=== PATIENT | female | born 1970 | race Caucasian/White ===

== ENCOUNTER 2019-03-30 10:52 | Inpatient (IN) | payer OTHER, SELFPAY ==
[2019-03-30] MEDS ORDERED: Bisacodyl 10 MG SUPP PR PRN (12:30)
[2019-03-30] MEDS ORDERED: Guaifenesin DM 100-10/5 ML UDCUP PO PRN (12:30)
[2019-03-30] MEDS ORDERED: Promethazine HCl 25 MG/ML VIAL ONE (12:47)
[2019-03-30] MEDS ORDERED: Dexamethasone 4 mg/ml Vial SLOW IVP SCH (13:00)
--- NOTE | 2019-03-30 13:10 | HP ---
REASON FOR ADMISSION: Brain mass with vasogenic edema, left hemiparesis. HISTORY OF PRESENTING ILLNESS: The patient complains of intractable nausea and vomiting from last 2 weeks. She could not keep anything down. She went to see her primary care physician, Ms. Doris Groves and was given Zofran, which did not really help her. Then she tried to eat only dry foods, which then really helped, but as she was still throwing up. She also developed pressure-like headache which was throbbing all over. She in fact passed out in a store while she was shopping 2 weeks back. She has been feeling fuzzy which is especially worse with neck extension per patient. She has also lost weight. She is a right-handed person. Ms. Hickman states that she cannot focus well and has a wobbly gait now. PAST MEDICAL AND SURGICAL HISTORY: History of bleeding per rectum and in the urine a year back, and has had colonoscopy done, which showed 2 polyps with no malignancy as such. Both symptoms got resolved per patient. Cholecystectomy, tonsillectomy. Pap smear was more than 5 years ago as far as she knows was normal. Tobacco abuse. CURRENT MEDICATIONS: None. ALLERGIES: NO KNOWN DRUG ALLERGIES. PERSONAL HISTORY: Smokes half to one pack a day and has been doing so for the last 20 years. Does not abuse alcohol. Has used marijuana of late to control her nausea. The patient states she is single, has 3 children. FAMILY HISTORY: Mom in her 80s. She has had history of breast cancer. She also had history of polio. Father in his 70s from [place] and coronary artery disease. Power of deputy attorney general is her son, Mr. Nas Raza. Number to reach him is [phone]. She has 3 children. Has a daughter, who lives in [place] and another son was incarcerated at present. 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 REVIEW OF SYSTEMS: CONSTITUTIONAL: Negative for weight loss or gain, ability to conduct usual activities. SKIN: Negative for rash, itching. EYES: Negative for double vision, pain. ENT/MOUTH: Negative for nose bleeding, neck stiffness, pain, tenderness. CARDIOVASCULAR: Negative for palpitations, dyspnea on exertion, orthopnea. RESPIRATORY: Negative for shortness of breath, wheezing, cough, hemoptysis, fever or night sweats. GASTROINTESTINAL: Negative for poor appetite, abdominal pain, heartburn, nausea , vomiting, constipation, or diarrhea. GENITOURINARY: Negative for urgency, frequency, dysuria, nocturia. MUSCULOSKELETAL: Negative for pain, swelling. NEUROLOGIC/PSYCHIATRIC: Negative for anxiety, depression. ALLERGY/IMMUNOLOGIC: Negative for skin rash, bleeding tendency. PHYSICAL EXAMINATION: GENERAL: The patient is a 48-year-old female, who is currently not in any acute distress. VITAL SIGNS: Blood pressure 126/76, pulse 104 per minute, respiratory rate 16 per minute, temperature 98.4 degrees Fahrenheit, saturating 97% on room air. NECK: Supple. No elevated JVD. HEENT: Eyes, extraocular muscles intact. Pupils reacting to light. Oral cavity, mucous membranes are moist. No exudates or congestion. CARDIOVASCULAR: S1, S2 heard, regular rhythm. RESPIRATORY: Air entry 1+ bilateral. No rales or rhonchi. ABDOMEN: Soft, bowel sounds heard. No tenderness, rigidity, or guarding. EXTREMITIES: No peripheral edema or calf tenderness. VASCULAR: Peripheral pulses 1+ bilateral. No ischemic ulcerations or gangrene. CENTRAL NERVOUS SYSTEM: Cranial nerves are grossly intact. Motor system, strength is 3/5 in left upper and lower extremity, 5/5 in right upper and lower extremities. Babinski is downgoing both. Gait was not tested. Reflexes are 2+ bilateral and is fairly brisk on the left side. PSYCHIATRIC: Patient is a bit anxious, otherwise no hallucinations or delusions. LABORATORY DATA: CT brain without contrast done shows right cerebral masses with associated vasogenic edema and shift of midline. There is a 7 mm [id number] shift. Extensive vasogenic edema is seen throughout the right cerebral hemisphere, predominantly in the frontal and parietal region. There is a masslike area of density alteration within the right frontal and parietal white matter, rounded in nature with dense periphery and hypodense central characteristics. These may reflect metastatic disease or abscesses. White count of 9, H and H 14 and 47, platelet count 420, MCV is 99 with 64% neutrophils. Bicarb is 22, BUN 5, creatinine 0.7, serum glucose 90. CLINICAL IMPRESSION AND PLAN: The patient will be admitted to ICU for right brain mass and left hemiparesis. She has severe vasogenic edema. She will be on Decadron 4 mg IV q.6 hourly, Protonix 40 mg IV daily. We will obtain MRI brain with and without contrast and CT of the chest, abdomen, and pelvis to see if there is any primary. The patient is not septic at present. She has normal white count. This is unlikely to be an abscess. Nevertheless, we will obtain blood cultures. Dr. Goodman, neurosurgeon, has been consulted from ER. We will obtain PT/OT evaluations. The patient has no insurance and likely will need case management consultation as well for help with discharge planning. I have spoken to the patient's son, Mr. Nas Raza, who is currently in [place], training to become a [employer] warrior. He will likely fly down to help his mom. Job ID: [id number] [facility]
[2019-03-30 13:57] LABS: ALT (SGPT) 15 U/L (8-55); AST (SGOT) 14 U/L (5-34); Albumin 4.2 g/dL (3.5-5.0); Alkaline Phosphatase 63 U/L (40-110); Bilirubin, Direct 0.2 mg/dL (0.1-0.3); Bilirubin, Total 0.5 mg/dL (0.2-1.2); Protein, Total 6.7 g/dL (6.0-8.3)
--- NOTE | 2019-03-30 14:21 | CT ---
Chest, abdomen, and pelvic CT scan with IV contrast: HISTORY: History of brain mass with concern for metastasis. FINDINGS: There is a large, approximately 3.8 cm diameter poorly circumscribed thick walled cavitary mass in th e right upper lobe certainly worrisome for neoplasm. There are abnormally enlarged lymph nodes in the mediastinum including a 1.4 cm prevascular node, a 2.0 cm right paratracheal node, and a 1.8 cm d iameter subcarinal node evidence for extensive mediastinal adenopathy. There are probably some associated enlarged hilar nodes as well. No significant pleural effusion. Multiple small pulmonary pa renchymal nodular densities are noted bilaterally concerning for bilateral metastasis. No significant pleural effusion or pericardial effusion. No liver metastasis. Status post cholecystectomy with mild dilatation of the common duct. Visualized pancreas, spleen, and adrenal glands are unremarkable. There is some minimal dilatation of the right upper renal collecting system and left upper ureter but without evidence for an obstructing mike culus. Small right renal cysts. Normal-appearing appendix. Unremarkable appearing urinary bladder. Visualized uterus and adnexa are unremarkable. No significant abnormal intraperitoneal fluid collecti on. No evidence for intra-abdominal or retroperitoneal or pelvic adenopathy. IMPRESSION: Large poorly circumscribed cavitary right upper lobe lung mass suspicious for neoplasm. Extensive mediastinal adenopathy. Bilateral pulmonary metastasis. Dilatation of the right upper collecting system and right upper urete r without an overt obstructing calculus. Other findings as above.
[2019-03-30] MEDS ORDERED: Iopamidol-370 76% 500 ML 1 ML ONE (16:42)
--- NOTE | 2019-03-30 17:21 | CON ---
DATE OF CONSULTATION: HISTORY OF PRESENT ILLNESS: Ms. Hickman is a 48-year-old female, who was transferred from [place] to our emergency department. Apparently, she had a CT head showing right-sided mass with vasogenic edema. Ms. Hickman states that she has had 2 to 3 weeks of severe headaches, nausea, and vomiting. Primary care has tried some Zofran and Imitrex without any significant benefit. She has been unable to keep much down. She is currently coughing with frequently getting a white yellowish sputum up. She states that she has had some left-sided weakness, feels very fatigued in general. She is a smoker approximately half a pack a day, and has recently tried switching over to vaping. When I see her, she is resting, but has significant cough. She is afebrile. She is alert and oriented x3. She is slightly slow with responses, but is able to give correct appropriate response. She is moving all 4 extremities well. She has slight decrease in carding utility tender strength on the left, decreased hip flexion on the left with some decrease in sensation on the left lower leg and V1 and V2 distribution on the left side of her face. She has some blurriness to the left and her vision things are much more clear to the right, but pupils are equal, round, and reactive to light. Her extraocular movements are intact. Her hearing is intact. Moist mucous membranes. No cranial nerve deficit. REVIEW OF SYSTEMS: A 10-point review of systems is completed, is negative other than stated in the above HPI. ALLERGIES: NO KNOWN DRUG ALLERGIES. MEDICATIONS: None. PAST MEDICAL HISTORY: None. SOCIAL HISTORY: The patient denies alcohol use or illicit drug use. Uses tobacco, cigarettes approximately half a pack per day and she is trying to add vaping to quit smoking. PHYSICAL EXAMINATION: VITAL SIGNS: Temperature 98.4, blood pressure 116/86, respirations 16, heart rate 87, and O2 saturation 97% on room air. CONSTITUTIONAL: The patient is awake, alert, oriented x3. She is normal. Temperature, afebrile. Does appear to be in some distress with coughing and headache. HEENT. Head is normocephalic and atraumatic. Pupils are equal, round, and reactive to light. Extraocular movements are intact. Hearing is intact. Moist mucous membranes. RESPIRATIONS: Significant cough with symmetric chest rise. She has some whitish thick production. EXTREMITIES: 5/5 strength in bilateral deltoids, biceps, triceps, wrist extension, finger extension. Decreased left carding utility tender strength in intrinsic lower extremities 5/5, bilateral knee flexion, extension, dorsiflexion, plantar flexion. Decreased hip flexion on the left and decreased sensation on left lower leg. NEUROLOGIC: The patient is awake, alert, and oriented x3. GCS of 15. Cranial nerves 2 through 12 are tested and intact except for some decreased sensation in V1 and V2 on the left. She has some lateralizing weakness on the left side and some change in sensation in the left lower leg. She also describes more blurriness if she looks to the left compared to the right in her vision. Memory, attention, fund of knowledge are intact. IMAGING STUDIES: CT of the brain was done at [facility], indicates right cerebral masses with associated vasogenic edema and midline shift structures may be metastatic or abscess in nature. ASSESSMENT AND PLAN: Ms. Hickman is a 48-year-old female with a 2-week history of severe headache, nausea, and vomiting. She has new diagnosis via imaging of brain mass. Recommend hospitalist admission to workup new mass. We are recommending MRI of brain with and without contrast, [facility] protocol along with CT chest, abdomen and pelvis. Oncology consult. Dependent on imaging, could possibly take the patient to surgery tomorrow as early as tomorrow morning for tumor resection. She had attended [facility] in [place], continue 4 mg q.6 hours and regular neuro checks. If there are any further questions, please contact Neurosurgery. Job ID: [id number]
--- NOTE | 2019-03-30 17:31 | MRI ---
EXAM: MRI Brain W WO Con PROVIDED CLINICAL HISTORY: Brain masses COMPARISON: CT examination same date FINDINGS: There is extensive vasogenic edema throughout the right frontal and parietal regions redemonstrated. There are rim-enhancing masses within the right frontal and right parietal white matter measuring about 2.6 cm and 3.6 cm respectively. These demonstrate intermediate signal intensity on T1 and T2-we ighted images peripherally with areas of increased signal intensity centrally on fluid sensitive sequences. There is thick peripheral rim enhancement. There is some restricted diffusion seen involvi ng the circumference of these masses. Mass effect with eisph-tr-nthy shift of the midline structures by about 12 mm is noted, with the degr ee of shift increased with respect to the prior CT examination. There is no evidence for intracranial hemorrhage. There is mild uncal herniation. Appropriate flow voids are seen within the major intracranial vessels. No additional abnormal enhance ment is identified. The calvarial marrow signal demonstrates no focal abnormality. IMPRESSION: Rim-enhancing right cerebral masses with extensive vasogenic edema and increasing shift of the midlin e structures. Differential considerations would include metastatic disease and brain abscesses, though the lack of central restricted diffusion favors the former.
[2019-03-30] MEDS: Ondansetron PF 4 MG/2 ML Vial IVP PRN (17:34)
[2019-03-30] MEDS: Dexamethasone 4 mg/ml Vial SLOW IVP SCH (17:34)
[2019-03-30] MEDS: Acetaminophen 325 MG TAB PO PRN (17:34)
[2019-03-30] MEDS: Nicotine 14 MG PATCH TD SCH (17:35)
[2019-03-30] MEDS ORDERED: Ketorolac Tromethamine 30 MG/ML VIAL IVP SCH (18:00)
--- NOTE | 2019-03-30 18:04 | CON ---
DATE OF CONSULTATION: 03/30/2019 SERVICE: Pulmonary Medicine. REASON FOR CONSULTATION: ICU patient, lung mass. HISTORY OF PRESENT ILLNESS: The patient is a 48-year-old white female with past medical history significant for tobacco abuse and COPD. She was in her usual state of health until 1 to 2 months ago when she started having increasing headaches. She was seen multiple times and diagnosed with migraine. None of the medications seem to work. It progressed to the point where started having frequent vomiting. She presented to the emergency department, where a chest x-ray was performed demonstrating a mass. She had a CT of the chest, abdomen, pelvis, and CT of the head demonstrating extensive intracranial metastases, and right lung cavitary lesions as well as widespread mediastinal lymphadenopathy. She was subsequently admitted to the ICU for close neurologic observation because of her symptoms of increased intracranial pressure. She is actually feeling a little bit better at this point. She denies any current fevers or chills. She is not coughing up any sputum. PHYSICAL EXAMINATION: VITAL SIGNS: Afebrile. Pulse 98, blood pressure 108/74, respirations 16, saturation 96% on 2 L nasal cannula on room air. GENERAL: The patient is awake and alert, in no apparent distress. HEENT: Normocephalic, atraumatic. Sclerae are white. Conjunctivae are pink. Oral mucosa is moist without lesions. There is no cervical lymphadenopathy present. HEART: Normal rate. Regular. LUNGS: Good air entry. There is a slightly prolonged expiratory phase, but I do not appreciate any wheezing or crackles. ABDOMEN: Soft, nontender, and nondistended. Bowel sounds are positive. MUSCULOSKELETAL: No cyanosis or clubbing. There is no pitting in the bilateral lower extremities. NEUROLOGIC: Grossly nonfocal. LABORATORY DATA: WBC 9.4, hemoglobin 14.9, platelets 420,000. Differential is normal. Basic metabolic profile and liver function studies are unremarkable. IMAGING DATA: 1. CT of the chest, abdomen, and pelvis demonstrates a right cavitary lesion, multiple bilateral pulmonary nodules/masses are present. Widespread mediastinal lymphadenopathy is present, but I do not appreciate any cervical lymph nodes on the CT of the chest. 2. CT of the brain demonstrates extensive intracranial metastases. There is significant midline shift, and vasogenic edema present. ASSESSMENT: 1. Cavitary lung mass. 2. Mediastinal lymphadenopathy. 3. Brain metastases. 4. Chronic obstructive pulmonary disease/emphysema identified on CT of chest. DISCUSSION AND PLAN: The only place will have to go to get a sample is either the lung, or the brain. I will discuss with Neurosurgery which is the safest option. If they are planning to intervene on the intracranial hypertension, we will await their pathology. If not, a bronchoscopy could be done and would be technically easy, but pose a significant risk of intraoperative herniation. As such, we would have to do it under general anesthesia, and paralyze her to prevent any coughing fits. I believe a transcutaneous biopsy could create a very significant bronchopleural fistula, which would be challenging to correct. Because of the amount of emphysema that she has, she almost certainly would develop a pneumothorax. I will discuss these options with neurosurgery, and come up with a plan of action that best serves this patient. In the meantime, she is going to be on stress dose of steroids. I will schedule nebulized medications. Pulmonary/Critical Care will follow very closely. 70 minutes have been devoted to this patient in various activities. I personally reviewed all imaging studies and laboratory data noted within this document. For fifty percent of this time, I was interacting with the patient at the bedside or coordinating care with the care team. For the remainder of the time I was immediately available to the patient in the hospital unit. Job ID: [id number] [facility]
[2019-03-30] MEDS ORDERED: ALPRAZolam 0.5 MG TAB PO SCH (22:45)
[2019-03-31] MEDS: Dexamethasone 4 mg/ml Vial SLOW IVP SCH ×4 (00:09→18:55)
[2019-03-31 04:46] LABS: #Monocytes 0.2 thou/uL (0.11-0.59); #Neutrophils 7.4 thou/uL (1.40-6.50); %Lymphocytes 11.2 % (21.0-51.0); %Monocytes 2.5 % (0.0-10.0); %Neutrophils 86.3 % (42.0-75.0); Hemoglobin 12.4 g/dL (12.0-16.0); Mean Corpuscular HGB CONC 33.1 g/dL (32.0-36.0); Mean Corpuscular Hemoglobin 32.6 pg (27.0-31.0); Mean Corpuscular Volume 98.6 fL (78.0-98.0); Mean Platelet Volume 6.4 fL (7.4-10.4); Platelet Count 361 thou/uL (130-400); RBC Distribution Width 11.4 % (11.5-14.5); White Blood Cell (WBC) Count 8.6 thou/uL (4.8-10.8)
[2019-03-31 05:05] LABS: Anion Gap 13 mmol/L (10-20); BUN (Urea Nitrogen) 9 mg/dL (7.0-18.7); Calc. Creatinine Clearance 0 mL/min (70-130); Carbon Dioxide 22 mmol/L (22-29); Chloride 106 mmol/L (98-107); Estimated GFR-MDRD 89; Glucose 135 mg/dL (70-105); Potassium 3.5 mmol/L (3.5-5.1); Sodium 137 mmol/L (136-145)
[2019-03-31] MEDS: ALPRAZolam 0.5 MG TAB PO PRN (07:16)
[2019-03-31] MEDS: Pantoprazole 40 MG VIAL IVP SCH (07:16)
[2019-03-31] MEDS: Ondansetron PF 4 MG/2 ML Vial IVP PRN (07:16)
[2019-03-31] MEDS ORDERED: CEFAZOLIN 2 GM in Premix Bag 1 BAG IVPB SCH (08:00)
--- NOTE | 2019-03-31 08:31 | PRG ---
DATE OF SERVICE: 03/31/2019 I personally interviewed and examined the patient, and agree with documentation of Ave Givens PA-C, dated 03/30/2019. Briefly, Lupe Hickman is a 48-year-old woman admitted to our emergency department yesterday with a change in mental status over the last [address] image of the brain revealed at least 2 areas of mass with surrounding vasogenic edema and a significant amount of right to left shift. MR imaging was obtained and I spoke to her both last night and this morning about treatment. Ms. Hickman has had no fevers and her vitals have been stable since her admission. On examination, Ms. Hickman has some tangential speech, but she has no severe receptive or expressive dysphagia. She has some short-term memory issues, but she has a cognitive ability to follow a conversation and she is appropriately worried about her medical condition. I do not find any cranial neuropathy on her examination. There is a slight left-sided drift and slight left-sided neglect. There is left inferior quadrantanopsia. MR imaging shows two enhancing lesions, one in the frontal lobe, one in the parietal lobe, both on the right side. There is surrounding vasogenic edema around both of these. There is significant midline shift because of the edema and the mass effect. These look metastatic. CT of the chest, abdomen, pelvis shows a lesion in the right lung as well as hilar adenopathy. I spoke to Ms. Hickman and then I spoke with Ramon Raza, her son, on the phone. I told both of them that this is likely a lung cancer that has metastasized to the brain. Other possibilities include a different malignancy that has metastasized both to the lung and the brain. It is very unlikely this is abscess. I have recommended stereotactic resection of both lesions, a 2-week recovery, and then beginning adjuvant therapy thereafter. Informed Consent: I discussed indications, risks, benefits, alternatives and expected outcomes from surgery. The risks we discussed included, but were not limited to, bleeding, infection, brain damage, seizure, stroke, paralysis, dependence for care, vegetative state, cardiopulmonary complications of anesthesia and . They understand the risks and want to proceed. We will get her to the operating room today. Job ID: [id number]
[2019-03-31] MEDS ORDERED: FLU VACC QS2019-20(6MOS UP)/PF 60 MCG/0.5 ML SYRINGE IM ONE (09:00)
[2019-03-31] MEDS ORDERED: Dexamethasone 20 MG/5 ML VIAL ONE (11:30)
[2019-03-31] MEDS ORDERED: Rocuronium Bromide 10 MG/ML (10ML VIAL) ONE (11:30)
[2019-03-31] MEDS ORDERED: Ondansetron PF 4 MG/2 ML Vial ONE (11:30)
[2019-03-31] MEDS ORDERED: Lidocaine 1% PF 5 ML VIAL ONE (11:30)
[2019-03-31] MEDS ORDERED: PROPOFOL 200 MG/20 ML VIAL ONE (11:30)
[2019-03-31] MEDS ORDERED: Glycopyrrolate 0.2 MG/ML 5 ML SYRINGE ONE (11:30)
--- NOTE | 2019-03-31 12:09 | PDOC.HOSPP ---
- Subjective Encounter Date: 03/31/19 Encounter Time: 10:30 Subjective: awake, no coughing spells no nausea/vomiting or headache this am is able to move her left extremities but its still the same as before "leg doesn 't want to listen to me" - Objective Vital Signs & Weight: Vital Signs (12 hours) Temp Pulse Resp Pulse Ox 03/31/19 08:00 98 03/31/19 07:33 85 16 99 03/31/19 04:00 98.0 F Weight Weight 1.541 oz Most Recent Monitor Data Heart Rate from ECG 86 NIBP 116/75 NIBP BP-Mean 88 Respiration from ECG 20 SpO2 98 I&O: 03/30/19 03/31/19 04/01/19 06:59 06:59 06:59 Intake Total 252 0 Output Total 700 0 Balance -448 0 Result Diagrams: 03/31/19 04:28 03/31/19 04:28 Hospitalist ROS - Medication Medications: Active Medications Generic Name Dose Route Start Last Admin Trade Name Freq PRN Reason Stop Dose Admin Acetaminophen 650 mg 03/30/19 12:30 03/30/19 17:34 Tylenol PO 650 mg Q4H PRN Administration Headache/Fever/Mild Pain (1-3) Albuterol/Ipratropium 3 ml 03/30/19 19:00 03/31/19 07:33 Duoneb NEB 3 ml [id number] AVEL Administration Alprazolam 0.5 mg 03/30/19 22:43 03/31/19 07:16 Xanax PO 0.5 mg BID PRN Administration Anxiety Dexamethasone 4 mg 03/30/19 18:00 03/31/19 11:51 Decadron SLOW IVP 4 mg Q6HR AVEL Administration Nicotine 14 mg 03/30/19 18:00 03/30/19 17:35 Nicoderm Patch TD Not Given Q24HR AVEL Ondansetron HCl 4 mg 03/30/19 12:30 03/31/19 07:16 Zofran IVP 4 mg Q6H PRN Administration Nausea/Vomiting Pantoprazole Sodium 40 mg 03/31/19 09:00 03/31/19 07:16 Protonix IVP 40 mg DAILY AVEL Administration - Exam General Appearance: NAD, awake alert Eye: PERRL, anicteric sclera ENT: no oropharyngeal lesions, moist mucosa Neck: supple, no JVD Heart: RRR, no murmur Respiratory: no wheezes, no rales, rhonchi Gastrointestinal: soft, non-tender, non-distended, normal bowel sounds Extremities: no cyanosis, no edema Neurological - other findings: left hemiparesis Hosp A/P (1) Brain mass Code(s): G93.89 - OTHER SPECIFIED DISORDERS OF BRAIN Status: Acute (2) Lung mass Code(s): R91.8 - OTHER NONSPECIFIC ABNORMAL FINDING OF LUNG FIELD Status: Acute (3) Tobacco abuse Code(s): Z72.0 - TOBACCO USE Status: Chronic (4) Left hemiparesis Code(s): G81.94 - HEMIPLEGIA, UNSPECIFIED AFFECTING LEFT NONDOMINANT SIDE Status: Acute - Plan has right cerebral mass x2 likely mets, right lung cavitary lesion in upper lobe with mediastinal adenopathy chronic tobacco abuse on decadron, protonix, nebs is going to OR this afternoon hemostable quantiferon has been ordered.
[2019-03-31] MEDS ORDERED: Lidocaine 0.5%/Epinephrine 1:200,000 50 ml Vial ONE (13:52)
[2019-03-31] MEDS ORDERED: Sodium Chloride 0.9% 20 ML ONE (13:53)
[2019-03-31] MEDS ORDERED: Thrombin 5000 UNITS/5 ML VIAL ONE (13:53)
[2019-03-31] MEDS ORDERED: Bacitracin Zinc Ointment 30 gm TUBE ONE (13:53)
[2019-03-31] MEDS ORDERED: Fentanyl 100 MCG/2 ML VIAL ONE (14:37)
--- NOTE | 2019-03-31 16:08 | PRG ---
DATE OF SERVICE: 03/31/2019 SERVICE: Pulmonary Medicine. INTERVAL HISTORY: The patient is doing fine from respiratory standpoint. She continues to have some headaches, but they are better. Less nausea. She did not eat much of the meal last night. She has been n.p.o. this morning for surgical procedure. PHYSICAL EXAMINATION: VITAL SIGNS: Afebrile, pulse 102, blood pressure 116/76, respirations 22, and saturation 95% currently on room air. GENERAL: The patient is awake and alert, in no apparent distress. LUNGS: Decent air entry. There is a prolonged expiratory phase, but no wheezing. HEART: Normal rate and regular. ABDOMEN: Soft, nontender, and nondistended. Bowel sounds are positive. MUSCULOSKELETAL: No cyanosis or clubbing. No pitting edema. LABORATORY DATA: WBC is 8.6, hemoglobin 12.4, platelets 361,000. Basic metabolic profile and liver function studies are otherwise unremarkable. Blood cultures x2 are negative. ASSESSMENT: 1. Cavitary lung mass. 2. Mediastinal lymphadenopathy. 3. Brain metastases, multiple. 4. Chronic obstructive pulmonary disease/emphysema identified on CT scan without acute exacerbation. DISCUSSION AND PLAN: The patient is currently optimized from a respiratory standpoint to proceed with a surgical intervention. She is going to undergo a craniotomy x2 today with possible excision of both metastases. We will await the pathology. Pulmonary/Critical Care will continue to follow along while she remains in the ICU. Job ID: [id number]
[2019-03-31] MEDS ORDERED: Sodium Chloride 0.9% 10 ML ONE (17:08)
[2019-03-31] MEDS: Acetaminophen 1,000 MG in Premix Bag 1 BAG IVPB PRN (18:54)
[2019-03-31] MEDS: Morphine 2 MG/ML SYRINGE SLOW IVP PRN (18:55)
[2019-03-31] MEDS: Nicotine 14 MG PATCH TD SCH (18:55)
[2019-03-31] MEDS ORDERED: Acetaminophen/Codeine 30-300mg Tablet PO PRN (19:14)
--- NOTE | 2019-03-31 19:24 | OP ---
DATE OF PROCEDURE: 03/31/2019 STEAM TRAP MAN: Ave Givens PA-C PREOPERATIVE INDICATION: Make diagnosis, treat mass effect, prevent neurological deterioration. PREOPERATIVE DIAGNOSIS: Two left hemisphere lesions, one frontal, one parietal, likely metastatic, with vasogenic edema midline shift. POSTOPERATIVE DIAGNOSIS: Two left hemisphere lesions, one frontal, one parietal, likely metastatic, with vasogenic edema midline shift. PROCEDURES PERFORMED: Right-sided frontoparietal craniotomy, BrainLAB stereotactic-assisted volumetric resection of right frontal lesion and right parietal lesion. PREOPERATIVE MEDICATIONS: Ancef 2 g IV. DRAIN NUMBER: Zero. DRAIN TYPE: None. DESCRIPTION OF PROCEDURE: The patient was brought to the operating room. General endotracheal anesthesia was induced. The patient's head was immobilized in [place] pin and hogshead packer, which was attached to the [place] attachment for operating table. Using the preoperative BrainLAB protocol, MRI scans, and the [employer] system, we generated three-dimensional stereotactic space around the patient's skull. We registered with surface matching techniques and verified the registration with surface landmarks. The concordance was excellent. Hair was removed from the right side of the scalp with electric clippers. We marked out the surface presentation of the tumors. We planned a large wide U shaped incision starting at the root of the zygoma, proceeding towards the midline and then backwards down the midline to the inion. Under a planned incision, we infused local anesthetic. The scalp was sterilely prepped and draped. We opened with a 10 blade knife and we controlled bleeding with bipolar cautery. We used monopolar cautery to fashion a scalp flap that we folded inferiorly under fishhook. We used our navigation wand to map out the surface presentation of the tumors on the skull. We then planned an oval shaped craniotomy just off the midline and giving us access to the frontal and parietal lobes, but staying above the superotemporal line. We placed paco holes and waxed the edges of the paco holes. We stripped the dura from the undersurface of the bone with a [place] 3 dissector and then fashioned a craniotomy with a side-cutting bit and a footplate. The bone flap was taken out of the field. We irrigated with bacitracin irrigation. We gave 25 g of mannitol and then we opened the dura in a curvilinear fashion. We kept the dura attached to the midline and folded it towards the midline. The parietal tumor presented right to the surface. The frontal tumor was just under the merlin. We began our resection in the parietal area. The operative microscope was brought into the field. Using the [employer] navigation system, we mapped out the tumor margins. We gently coagulated the merlin and incised it. We entered the tumor and then folded it inward. The tumor was quite dense. This was as dense as a meningioma on the surface. We generated a plane around the tumor it from gliotic brain. We circumferentially dissected all the way to the depths of the tumor. The tumor was in two parts, more superficial dense part, and then deeper part was less dense and had some fluid within it. Surface part was removed and then we adjusted our microscope to visualize the deeper part. The navigation wand clearly indicated this was still tumor. We dissected circumferentially around this area and removed it as nearly a single unit as well. We then verified resection was complete with the BrainLAB navigation system. We irrigated with bacitracin irrigation and turned our attention to the frontal lesion. Here we had to enter the merlin and the parenchyma about 3 mm before we encountered dense tumor. This tumor was also dense and had the consistency of the meningioma. We dissected circumferentially around it. This tumor was smaller and had only one lobule. Once we dissected anterior, posteriorly, medially, and laterally, I then identified the deep margin proved to be rather straightforward. We removed it in a single piece and sent it to Pathology. We irrigated here with bacitracin irrigation. Hemostasis was excellent. We reapproximated the dura in an interrupted fashion and took the operating microscope out of the field. We irrigated once again with bacitracin irrigation. The scalp flap was replaced with titanium plates and screws. We closed the scalp in anatomical layers and applied a sterile head wrap. The patient's head was removed from [place] pin and hogshead packer and she was transferred to the transport cart. This was a clean case. No contamination. Job ID: [id number]
[2019-03-31] MEDS ORDERED: hydrALAZINE 20 MG/ML VIAL SLOW IVP PRN (19:31)
[2019-03-31] MEDS ORDERED: Labetalol HCl 100 MG/20 ML VIAL SLOW IVP PRN (19:31)
[2019-03-31] MEDS ORDERED: Mag-Al 1200 mg/1200 mg/30 ML UDCUP PO PRN (19:31)
[2019-03-31] MEDS: Sodium Chloride 0.9% 1,000 ML IV SCH (19:45)
[2019-03-31] MEDS: CEFAZOLIN 2 GM in Premix Bag 1 BAG IVPB SCH (22:10)
[2019-03-31] MEDS: Promethazine HCl 25 MG/ML VIAL IM PRN (22:17)
[2019-04-01] MEDS: ALPRAZolam 0.5 MG TAB PO PRN ×2 (00:23→23:38)
[2019-04-01] MEDS: Dexamethasone 4 mg/ml Vial SLOW IVP SCH ×5 (00:24→23:38)
[2019-04-01] MEDS: Acetaminophen 1,000 MG in Premix Bag 1 BAG IVPB PRN ×2 (01:09→11:40)
[2019-04-01] MEDS: CEFAZOLIN 2 GM in Premix Bag 1 BAG IVPB SCH (05:46)
[2019-04-01 06:18] VITALS: BMI 21.2
[2019-04-01] MEDS ORDERED: traMADol HCl 50 MG TAB PO PRN (06:38)
[2019-04-01] MEDS: traMADol HCl 50 MG TAB PO PRN ×2 (06:42→17:26)
[2019-04-01] MEDS: Morphine 2 MG/ML SYRINGE SLOW IVP PRN ×3 (07:36→20:00)
[2019-04-01] MEDS: Promethazine HCl 25 MG/ML VIAL IM PRN ×2 (07:37→17:12)
[2019-04-01] MEDS: Pantoprazole 40 MG VIAL IVP SCH (07:37)
[2019-04-01] MEDS: Sodium Chloride 0.9% 1,000 ML IV SCH (08:44)
[2019-04-01 09:19] LABS: #Lymphocytes 0.9 thou/uL (1.20-3.40); %Eosinophils 0.1 % (0.0-10.0); %Lymphocytes 6.1 % (21.0-51.0); %Neutrophils 86.8 % (42.0-75.0); Hemoglobin 11.7 g/dL (12.0-16.0); Mean Corpuscular HGB CONC 33.7 g/dL (32.0-36.0); Mean Corpuscular Hemoglobin 33.7 pg (27.0-31.0); Mean Corpuscular Volume 99.8 fL (78.0-98.0); Mean Platelet Volume 6.8 fL (7.4-10.4); Platelet Count 315 thou/uL (130-400); RBC Distribution Width 11.6 % (11.5-14.5); Red Blood Cell (RBC) Count 3.48 mill/uL (4.20-5.40)
--- NOTE | 2019-04-01 09:26 | PRG ---
DATE OF SERVICE: 04/01/2019 Ms. Hickman is one day out from craniotomy for resection of two brain metastases. She is doing relatively well. I do not find any new or significant weakness on the left side and actually tolerated the surgery quite well. She is ready for transfer from the ICU bed to inpatient floor care. Consults have already been placed for Oncology and Radiation Oncology. Once she is safe for activities of daily living, she can go home. Job ID: [id number]
[2019-04-01 09:33] LABS: ALT (SGPT) 19 U/L (8-55); AST (SGOT) 28 U/L (5-34); Albumin 3.4 g/dL (3.5-5.0); Alkaline Phosphatase 52 U/L (40-110); Anion Gap 14 mmol/L (10-20); BUN (Urea Nitrogen) 10 mg/dL (7.0-18.7); Bilirubin, Total 0.2 mg/dL (0.2-1.2); Calc. Creatinine Clearance 68 mL/min (70-130); Calcium 8.5 mg/dL (7.8-10.44); Carbon Dioxide 18 mmol/L (22-29); Chloride 108 mmol/L (98-107); Estimated GFR-MDRD 79; Globulin 2.2 g/dL (2.4-3.5); Glucose 164 mg/dL (70-105); Potassium 3.8 mmol/L (3.5-5.1); Protein, Total 5.6 g/dL (6.0-8.3); Sodium 136 mmol/L (136-145)
--- NOTE | 2019-04-01 12:01 | PRG ---
DATE OF SERVICE: 04/01/2019 SERVICE: Pulmonary Medicine. INTERVAL HISTORY: The patient is doing great from respiratory standpoint. She is breathing comfortably on room air. She is working with physical therapy. Her responses are touch delayed, but she is making some significant improvements neurologically. Otherwise, there has been no interval change to her condition. PHYSICAL EXAMINATION: VITAL SIGNS: Afebrile, pulse 69, blood pressure 118/71, respirations 16, saturation 95%, currently on room air. GENERAL: The patient is awake and alert, in no apparent distress. LUNGS: Decent air entry. There is a prolonged expiratory phase, but no wheezing or crackles are appreciated. HEART: Normal rate, regular. ABDOMEN: Soft, nontender, nondistended, bowel sounds are positive. MUSCULOSKELETAL: No cyanosis or clubbing. No pitting in the bilateral lower extremities. LABORATORY DATA: WBC 15, hemoglobin 11.7, and platelets 315,000. Basic metabolic profile and liver function studies are essentially unremarkable. Blood cultures x2 are negative. ASSESSMENT: 1. Cavitary lung mass. 2. Mediastinal lymphadenopathy. 3. Brain metastases, status post craniotomy and excision x2. 4. Chronic obstructive pulmonary disease without current exacerbation. DISCUSSION AND PLAN: We will continue our supportive care. We will follow our pathology results. I will likely get any answer from what is pending currently. Supportive measures will be continued. At this point, she is stable for transition to the floor from respiratory standpoint. I will continue to follow for the time being, however. Job ID: [id number]
[2019-04-01] MEDS: Ondansetron PF 4 MG/2 ML Vial IVP PRN ×2 (13:39→20:01)
--- NOTE | 2019-04-01 13:44 | PDOC.HOSPP ---
- Subjective Encounter Date: 04/01/19 Encounter Time: 09:00 Subjective: awake, sitting on commode responds well to verbal stimuli is moving right extr well - Objective Vital Signs & Weight: Vital Signs (12 hours) Temp Pulse Resp BP BP Pulse Ox 04/01/19 10:30 98.0 F 69 16 118/71 95 04/01/19 09:50 115/69 04/01/19 08:00 97.8 F 97 04/01/19 04:00 97.9 F Weight Weight 108 lb 14.534 oz Most Recent Monitor Data Heart Rate from ECG 84 NIBP 115/69 NIBP BP-Mean 84 Respiration from ECG 14 SpO2 96 I&O: 03/31/19 04/01/19 04/02/19 06:59 06:59 06:59 Intake Total 252 1299 537 Output Total 700 970 305 Balance -448 329 232 Result Diagrams: 04/01/19 09:06 04/01/19 09:06 Hospitalist ROS - Medication Medications: Active Medications Generic Name Dose Route Start Last Admin Trade Name Freq PRN Reason Stop Dose Admin Acetaminophen 650 mg 03/30/19 12:30 03/30/19 17:34 Tylenol PO 650 mg Q4H PRN Administration Headache/Fever/Mild Pain (1-3) Albuterol/Ipratropium 3 ml 03/30/19 19:00 04/01/19 08:11 Duoneb NEB Not Given [id number] AVEL Alprazolam 0.5 mg 03/30/19 22:43 04/01/19 00:23 Xanax PO 0.5 mg BID PRN Administration Anxiety Dexamethasone 4 mg 03/30/19 18:00 04/01/19 11:39 Decadron SLOW IVP 4 mg Q6HR AVEL Administration Acetaminophen 1,000 mg/ Device 100 mls @ 400 mls/hr 03/31/19 18:48 04/01/19 11:40 IVPB 100 mls Q6H PRN Administration Fever/Mild Pain Morphine Sulfate 2 mg 03/31/19 18:47 04/01/19 07:36 Morphine SLOW IVP 2 mg Q2H PRN Administration Pain Nicotine 14 mg 03/30/19 18:00 03/31/19 18:55 Nicoderm Patch TD Not Given Q24HR AVEL Ondansetron HCl 4 mg 03/30/19 12:30 04/01/19 13:39 Zofran IVP 4 mg Q6H PRN Administration Nausea/Vomiting Pantoprazole Sodium 40 mg 03/31/19 09:00 04/01/19 07:37 Protonix IVP 40 mg DAILY AVEL Administration Promethazine HCl 12.5 mg 03/31/19 19:31 04/01/19 07:37 Phenergan IM 12.5 mg Q4H PRN Administration Nausea/Vomiting Sodium Chloride 10 ml 03/31/19 19:31 04/01/19 13:40 Flush - Normal Saline IVF 10 ml PRN PRN Administration Saline Flush Tramadol HCl 100 mg 04/01/19 06:38 04/01/19 06:42 Ultram PO 100 mg Q6H PRN Administration Severe Pain (7-10) - Exam General Appearance: awake alert Eye: PERRL, anicteric sclera ENT: no oropharyngeal lesions, moist mucosa Neck: supple, no JVD Heart: RRR, no murmur Respiratory: no wheezes, no rales Gastrointestinal: soft, non-tender, non-distended, normal bowel sounds Neurological: cranial nerve grossly intact Neurological - other findings: left hemiparesis Hosp A/P (1) Brain mass Code(s): G93.89 - OTHER SPECIFIED DISORDERS OF BRAIN Status: Acute (2) Lung mass Code(s): R91.8 - OTHER NONSPECIFIC ABNORMAL FINDING OF LUNG FIELD Status: Acute (3) Tobacco abuse Code(s): Z72.0 - TOBACCO USE Status: Chronic (4) Left hemiparesis Code(s): G81.94 - HEMIPLEGIA, UNSPECIFIED AFFECTING LEFT NONDOMINANT SIDE Status: Acute - Plan s/p craniotomy with resection of 2 brain mets. has right cerebral mass x2 likely mets, right lung cavitary lesion in upper lobe with mediastinal adenopathy chronic tobacco abuse on decadron, protonix, nebs hemostable quantiferon pending, blood cs are -ve tx to medsurg floor PT/OT to mobilize as tolerated, ?rehab
[2019-04-01] MEDS: Nicotine 14 MG PATCH TD SCH (17:32)
[2019-04-02] MEDS: traMADol HCl 50 MG TAB PO PRN ×3 (04:09→21:30)
[2019-04-02] MEDS: Ondansetron PF 4 MG/2 ML Vial IVP PRN ×3 (04:09→21:29)
[2019-04-02] MEDS: Dexamethasone 4 mg/ml Vial SLOW IVP SCH ×3 (05:46→18:22)
[2019-04-02] MEDS: Morphine 2 MG/ML SYRINGE SLOW IVP PRN (05:46)
--- NOTE | 2019-04-02 06:52 | PRG ---
DATE OF SERVICE: 04/02/2019 Ms. Hickman is 2 days out from a craniotomy for resection of metastatic lesions in the right hemisphere. She is ambulating yesterday and she felt her left side was a bit slower than the right. Eventually, it does what she wants to do , but she has to thinker harder to get it to move. the vital signs are Stable. On exam, there is slight neglect and pronator drift. She has improved since before surgery, however. Histopathology is pending. Once Ms. Hickman is safe for her activities of daily living, she can be discharged. If she needs a week in inpatient rehabilitation, we can make that happen. Ms. Hickman will need a followup appointment in Oncology and Radiation Oncology sometime between April 14 and April 21. Once the shilpi are out 2 weeks after her craniotomy and the skin looks good, she can start her adjuvant therapy right away. Job ID: [id number] MTDD
[2019-04-02] MEDS: Pantoprazole 40 MG VIAL IVP SCH (08:38)
[2019-04-02] MEDS: Docusate 100 MG CAP PO PRN (08:39)
[2019-04-02] MEDS: Promethazine HCl 25 MG/ML VIAL IM PRN ×2 (08:39→18:19)
[2019-04-02] MEDS: Morphine 4 MG/ML VIAL SLOW IVP PRN (08:52)
--- NOTE | 2019-04-02 16:32 | PDOC.HOSPP ---
- Subjective Encounter Date: 04/02/19 Encounter Time: 08:45 Subjective: awake, some nausea says she ate her supper well daughter at bedside communicating well this morning - Objective Vital Signs & Weight: Vital Signs (12 hours) Temp Pulse Resp BP Pulse Ox 04/02/19 14:23 75 16 97 04/02/19 13:00 97.7 F 73 18 117/77 93 L 04/02/19 08:00 95 04/02/19 07:49 97.9 F 73 18 133/83 95 04/02/19 06:53 98 04/02/19 06:50 70 16 98 Weight Admit Weight 108 lb Weight 108 lb 14.534 oz Most Recent Monitor Data Heart Rate from ECG 84 NIBP 115/69 NIBP BP-Mean 84 Respiration from ECG 14 SpO2 96 I&O: 04/01/19 04/02/19 04/03/19 06:59 06:59 06:59 Intake Total 1299 2237 Output Total 970 305 Balance 329 1932 Result Diagrams: 04/01/19 09:06 04/01/19 09:06 Hospitalist ROS - Medication Medications: Active Medications Generic Name Dose Route Start Last Admin Trade Name Freq PRN Reason Stop Dose Admin Acetaminophen 650 mg 03/30/19 12:30 03/30/19 17:34 Tylenol PO 650 mg Q4H PRN Administration Headache/Fever/Mild Pain (1-3) Albuterol/Ipratropium 3 ml 03/30/19 19:00 04/02/19 14:23 Duoneb NEB 3 ml [id number] AVEL Administration Alprazolam 0.5 mg 03/30/19 22:43 04/01/19 23:38 Xanax PO 0.5 mg BID PRN Administration Anxiety Dexamethasone 4 mg 03/30/19 18:00 04/02/19 12:59 Decadron SLOW IVP 04/03/19 02:00 4 mg Q6HR AVEL Administration Docusate Sodium 100 mg 03/31/19 19:31 04/02/19 08:39 Colace PO 100 mg BIDPRN PRN Administration Constipation Acetaminophen 1,000 mg/ Device 100 mls @ 400 mls/hr 03/31/19 18:48 04/01/19 11:40 IVPB 100 mls Q6H PRN Administration Fever/Mild Pain Morphine Sulfate 2 mg 03/31/19 18:47 04/02/19 05:46 Morphine SLOW IVP 2 mg Q2H PRN Administration Pain Morphine Sulfate 4 mg 03/31/19 19:31 04/02/19 08:52 Morphine SLOW IVP 4 mg Q1H PRN Administration Severe Breakthrough Pain Nicotine 14 mg 03/30/19 18:00 04/01/19 17:32 Nicoderm Patch TD Not Given Q24HR AVEL Ondansetron HCl 4 mg 03/30/19 12:30 04/02/19 12:59 Zofran IVP 4 mg Q6H PRN Administration Nausea/Vomiting Pantoprazole Sodium 40 mg 03/31/19 09:00 04/02/19 08:38 Protonix IVP 40 mg DAILY AVEL Administration Promethazine HCl 12.5 mg 03/31/19 19:31 04/02/19 08:39 Phenergan IM 12.5 mg Q4H PRN Administration Nausea/Vomiting Sodium Chloride 10 ml 03/31/19 19:31 04/02/19 08:42 Flush - Normal Saline IVF 10 ml PRN PRN Administration Saline Flush Tramadol HCl 100 mg 04/01/19 06:38 04/02/19 12:57 Ultram PO 100 mg Q6H PRN Administration Severe Pain (7-10) - Exam General Appearance: awake alert Eye: PERRL, anicteric sclera ENT: no oropharyngeal lesions, moist mucosa Neck: supple, no JVD Heart: RRR, no murmur Respiratory: no wheezes, no rales Gastrointestinal: soft, non-tender, non-distended, normal bowel sounds Extremities: no cyanosis, no edema Neurological - other findings: left side extre strength is 3/5 Hosp A/P (1) Brain mass Code(s): G93.89 - OTHER SPECIFIED DISORDERS OF BRAIN Status: Acute (2) Lung mass Code(s): R91.8 - OTHER NONSPECIFIC ABNORMAL FINDING OF LUNG FIELD Status: Acute (3) Tobacco abuse Code(s): Z72.0 - TOBACCO USE Status: Chronic (4) Left hemiparesis Code(s): G81.94 - HEMIPLEGIA, UNSPECIFIED AFFECTING LEFT NONDOMINANT SIDE Status: Acute - Plan s/p craniotomy with resection of 2 brain mets, await histopath has right cerebral mass x2 likely mets, right lung cavitary lesion in upper lobe with mediastinal adenopathy chronic tobacco abuse on protonix, nebs hemostable quantiferon pending, blood cs are -ve PT/OT to mobilize as tolerated, ?rehab has ambulated around 200ft with PT, d/w CM reg dc planning.
[2019-04-02] MEDS: Nicotine 14 MG PATCH TD SCH (18:20)
[2019-04-02] MEDS: Acetaminophen 1,000 MG in Premix Bag 1 BAG IVPB PRN (18:20)
[2019-04-03] MEDS: Dexamethasone 4 mg/ml Vial SLOW IVP SCH (00:14)
[2019-04-03] MEDS: traMADol HCl 50 MG TAB PO PRN ×3 (03:58→20:53)
[2019-04-03] MEDS: Dexamethasone 4 MG TAB PO SCH ×3 (06:28→20:52)
--- NOTE | 2019-04-03 07:30 | PRG ---
DATE OF SERVICE: 04/03/2019 Ms. Hickman is 3 days out from craniotomy for resection of metastatic lung cancer. We are waiting on the specific type and histopathology in the coming days. If she needs inpatient rehabilitation, she can leave today. She is safe to go home. She can leave today. I strenuously recommended to her that she have an Oncology and Radiation Oncology appointment next week. She does not need to wait until after her incision heals to make those appointments because those will be used to start planning her treatment. Her treatment can start as soon as the shilpi are out and the skin looks good 2-3 weeks after operation. The appointments next week will make the logistics of starting that on time much smoother. Job ID: [id number]
[2019-04-03] MEDS: Ondansetron PF 4 MG/2 ML Vial IVP PRN (08:52)
[2019-04-03] MEDS: Senokot S 8.6-50 MG TAB PO PRN (08:52)
[2019-04-03] MEDS: Pantoprazole 40 MG VIAL IVP SCH (08:52)
[2019-04-03] MEDS: Morphine 2 MG/ML SYRINGE SLOW IVP PRN (11:29)
--- NOTE | 2019-04-03 11:29 | CON ---
DATE OF CONSULTATION: REASON FOR CONSULTATION: Lung mass with brain metastasis. HISTORY OF PRESENT ILLNESS: Ms. Hickman is a pleasant 48-year-old female with past medical history of tobacco use, who presented to the emergency room with a 2-week complaint of intractable nausea and vomiting. She underwent a brain MRI, which showed a 2.6 cm x 3.6 cm mass in the right frontal and parietal area. She had a CT scan of her abdomen and pelvis that showed a 3.8 cavitary mass in her right upper lobe of her lung. She had mediastinal lymphadenopathy. She was admitted for further workup and underwent a craniotomy with tumor resection, path is currently pending. She is 3 days postoperative. She has some memory issues and continues to have headaches. She has mild left hemiparesis. History was obtained from discussion with the patient and review of medical records. PAST MEDICAL HISTORY: 1. Tobacco use. 2. Rectal bleeding. PAST SURGICAL HISTORY: Colonoscopy with polypectomy, cholecystectomy, and tonsillectomy. ALLERGIES: NO KNOWN DRUG ALLERGIES. HOME MEDICATIONS: None. FAMILY HISTORY: Mother had breast cancer. Father had [place]. SOCIAL HISTORY: Twenty pack year history of smoking, single, 3 children. REVIEW OF SYSTEMS: Negative except for headache and left-sided weakness. PHYSICAL EXAMINATION: VITAL SIGNS: Temperature is 97.7, pulse is 81, respiratory rate is 16, BP is 128/82. She is 95% on room air. GENERAL: This is a well-developed, well-nourished female, in no acute distress. HEENT: Normocephalic. She has incisions intact. NECK: Supple. CV: Regular rate and rhythm. LUNGS: Diminished. ABDOMEN: Soft and nontender. Bowel sounds are positive. EXTREMITIES: No clubbing or cyanosis. SKIN: No rash. HEMATOLOGICAL: No petechiae or purpura. NEUROLOGICAL: She has left-sided weakness and short-term memory issues. PERTINENT LABS AND X-RAYS: Current WBC is 15, hemoglobin 11.7, hematocrit 34.8, platelet count is 315,000, she has 86% neutrophils, 6% lymphocytes. Sodium 136, potassium 3.8, chloride 108, CO2 is 18, BUN is 10, creatinine 0.77, calcium 8.5, bilirubin 0.2, AST is 28, ALT is 19, alkaline phosphatase is 52. Serum total protein 5.6, albumin 3.4, globulin 2.2. Radiology per HPI. ASSESSMENT: Likely metastatic lung cancer with brain lesions, status post craniotomy with tumor resection. DISCUSSION: The patient's final path is currently pending. Immunohistochemical stains will have to be performed. She has some memory issues as well as left-sided weakness and is being considered for inpatient rehabilitation. She unfortunately has no insurance, so financial counselors are on the case to assist. She will need radiation and chemotherapy in the outpatient setting. I briefly discussed this with the patient, although it is unclear if she fully grasped her current situation. There is no other family at bedside. I scheduled her for an appointment with Dr. Bowman on April 15 to discuss further treatment options and provided our clinic information. Thank you for the consult. Job ID: [id number]
[2019-04-03] MEDS: Morphine 4 MG/ML VIAL SLOW IVP PRN (13:46)
[2019-04-03] MEDS: Nicotine 14 MG PATCH TD SCH (15:28)
[2019-04-03] MEDS: ALPRAZolam 0.5 MG TAB PO PRN (17:41)
--- NOTE | 2019-04-03 18:03 | PDOC.HOSPP ---
- Subjective Encounter Date: 04/03/19 Encounter Time: 09:45 Subjective: awake, no new symptoms is moving all extre but weak over left side is eating better now working with PT and ambulating a bit - Objective Vital Signs & Weight: Vital Signs (12 hours) Temp Pulse Resp BP Pulse Ox 04/03/19 15:52 97.6 F 78 18 138/82 95 04/03/19 11:09 97.9 F 89 16 111/74 95 04/03/19 08:13 97.7 F 81 16 128/82 95 04/03/19 08:10 95 04/03/19 06:32 94 L Weight Admit Weight 108 lb Weight 108 lb 14.534 oz Most Recent Monitor Data Heart Rate from ECG 84 NIBP 115/69 NIBP BP-Mean 84 Respiration from ECG 14 SpO2 96 I&O: 04/02/19 04/03/19 04/04/19 06:59 06:59 06:59 Intake Total 2237 2233 477 Output Total 305 Balance 1932 2233 477 Result Diagrams: 04/01/19 09:06 04/01/19 09:06 Hospitalist ROS - Medication Medications: Active Medications Generic Name Dose Route Start Last Admin Trade Name Freq PRN Reason Stop Dose Admin Acetaminophen 650 mg 03/30/19 12:30 03/30/19 17:34 Tylenol PO 650 mg Q4H PRN Administration Headache/Fever/Mild Pain (1-3) Albuterol/Ipratropium 3 ml 03/30/19 19:00 04/03/19 12:30 Duoneb NEB Not Given [id number] AVEL Alprazolam 0.5 mg 03/30/19 22:43 04/03/19 17:41 Xanax PO 0.5 mg BID PRN Administration Anxiety Dexamethasone 4 mg 04/03/19 07:00 04/03/19 15:18 Decadron PO 04/05/19 07:01 4 mg 0700,1500,2300 AVEL Administration Docusate Sodium 100 mg 03/31/19 19:31 04/02/19 08:39 Colace PO 100 mg BIDPRN PRN Administration Constipation Morphine Sulfate 2 mg 03/31/19 18:47 04/03/19 11:29 Morphine SLOW IVP 2 mg Q2H PRN Administration Pain Morphine Sulfate 4 mg 03/31/19 19:31 04/03/19 13:46 Morphine SLOW IVP 4 mg Q1H PRN Administration Severe Breakthrough Pain Nicotine 14 mg 03/30/19 18:00 04/03/19 15:28 Nicoderm Patch TD Not Given Q24HR AVEL Ondansetron HCl 4 mg 03/30/19 12:30 04/03/19 08:52 Zofran IVP 4 mg Q6H PRN Administration Nausea/Vomiting Pantoprazole Sodium 40 mg 03/31/19 09:00 04/03/19 08:52 Protonix IVP 40 mg DAILY AVEL Administration Promethazine HCl 12.5 mg 03/31/19 19:31 04/02/19 18:19 Phenergan IM 12.5 mg Q4H PRN Administration Nausea/Vomiting Senna/Docusate Sodium 2 tab 03/30/19 12:30 04/03/19 08:52 Senokot S PO 2 tab BID PRN Administration Constipation Sodium Chloride 10 ml 03/31/19 19:31 04/03/19 13:47 Flush - Normal Saline IVF 10 ml PRN PRN Administration Saline Flush Tramadol HCl 100 mg 04/01/19 06:38 04/03/19 11:25 Ultram PO 100 mg Q6H PRN Administration Severe Pain (7-10) - Exam General Appearance: awake alert Eye: PERRL, anicteric sclera ENT: no oropharyngeal lesions, moist mucosa Neck: supple, no JVD Heart: RRR, no murmur Respiratory: no wheezes, no rales Gastrointestinal: soft, non-tender, non-distended, normal bowel sounds Extremities: no cyanosis, no edema Neurological - other findings: left hemiparesis Hosp A/P (1) Brain mass Code(s): G93.89 - OTHER SPECIFIED DISORDERS OF BRAIN Status: Acute (2) Lung mass Code(s): R91.8 - OTHER NONSPECIFIC ABNORMAL FINDING OF LUNG FIELD Status: Acute (3) Tobacco abuse Code(s): Z72.0 - TOBACCO USE Status: Chronic (4) Left hemiparesis Code(s): G81.94 - HEMIPLEGIA, UNSPECIFIED AFFECTING LEFT NONDOMINANT SIDE Status: Acute - Plan s/p craniotomy with resection of 2 brain mets, await histopath had right cerebral mass x2 likely mets with resection, right lung cavitary lesion in upper lobe with mediastinal adenopathy chronic tobacco abuse on protonix, nebs hemostable quantiferon pending, blood cs are -ve PT/OT to mobilize as tolerated, ?rehab on [facility] if approved/swing bed has ambulated around 200ft with PT. CM working on dc planning.
[2019-04-04] MEDS: diphenhydrAMINE 50 MG CAP PO PRN ×2 (00:40→22:17)
[2019-04-04] MEDS: Acetaminophen 325 MG TAB PO PRN ×3 (00:40→17:47)
[2019-04-04] MEDS: traMADol HCl 50 MG TAB PO PRN ×4 (03:57→22:20)
[2019-04-04] MEDS: Ondansetron PF 4 MG/2 ML Vial IVP PRN ×2 (06:37→13:11)
[2019-04-04] MEDS: Dexamethasone 4 MG TAB PO SCH ×3 (06:37→22:17)
[2019-04-04] MEDS: Docusate 100 MG CAP PO PRN (06:37)
--- NOTE | 2019-04-04 07:42 | PRG ---
DATE OF SERVICE: 04/04/2019 Ms. Hickman is 4 days out from craniotomy for metastatic lung cancer. She is she is doing relatively well, but she is still not showing the memory, judgment, and insight that would make me feel comfortable sending her home alone. She has family members who can watch her and make sure she does not double her medication accidentally and make sure that she sees her oncologist and radiation oncologist, and we can start to make arrangements for her to go home. Safety is going to be an issue and we will enlist the support of Social Work to ensure that community resources are available to her for transportation and safety. Job ID: [id number]
[2019-04-04] MEDS: Pantoprazole 40 MG VIAL IVP SCH (08:37)
--- NOTE | 2019-04-04 12:00 | PDOC.HOSPP ---
- Subjective Encounter Date: 04/04/19 Encounter Time: 08:45 Subjective: awake, she does not recall my name but knows I am a doc seeing her moves her left extremities has ambulated with PT is eating better, is trying ensure chocolate can - Objective Vital Signs & Weight: Vital Signs (12 hours) Temp Pulse Resp BP Pulse Ox 04/04/19 11:57 97.9 F 83 16 121/83 92 L 04/04/19 08:34 98 04/04/19 08:27 87 20 98 04/04/19 08:20 95 04/04/19 07:34 97.5 F L 74 20 131/82 95 04/04/19 04:18 97.9 F 79 18 128/79 94 L 04/04/19 00:23 97.6 F 86 18 121/79 93 L Weight Admit Weight 108 lb Weight 108 lb 14.534 oz Most Recent Monitor Data Heart Rate from ECG 84 NIBP 115/69 NIBP BP-Mean 84 Respiration from ECG 14 SpO2 96 I&O: 04/03/19 04/04/19 04/05/19 06:59 06:59 06:59 Intake Total 2233 1297 477 Balance 2233 1297 477 Result Diagrams: 04/01/19 09:06 04/01/19 09:06 Hospitalist ROS - Medication Medications: Active Medications Generic Name Dose Route Start Last Admin Trade Name Freq PRN Reason Stop Dose Admin Acetaminophen 650 mg 03/30/19 12:30 04/04/19 00:40 Tylenol PO 650 mg Q4H PRN Administration Headache/Fever/Mild Pain (1-3) Albuterol/Ipratropium 3 ml 03/30/19 19:00 04/04/19 08:27 Duoneb NEB 3 ml [id number] AVEL Administration Alprazolam 0.5 mg 03/30/19 22:43 04/03/19 17:41 Xanax PO 0.5 mg BID PRN Administration Anxiety Bisacodyl 10 mg 03/30/19 12:30 04/04/19 08:37 Dulcolax [place] 10 mg DAILYPRN PRN Administration Constipation Dexamethasone 4 mg 04/03/19 07:00 04/04/19 06:37 Decadron PO 04/05/19 07:01 4 mg 0700,1500,2300 AVEL Administration Diphenhydramine HCl 50 mg 03/31/19 19:31 04/04/19 00:40 Benadryl PO 50 mg Q6H PRN Administration Itching & Insomnia Docusate Sodium 100 mg 03/31/19 19:31 04/04/19 06:37 Colace PO 100 mg BIDPRN PRN Administration Constipation Morphine Sulfate 2 mg 03/31/19 18:47 04/03/19 11:29 Morphine SLOW IVP 2 mg Q2H PRN Administration Pain Morphine Sulfate 4 mg 03/31/19 19:31 04/03/19 13:46 Morphine SLOW IVP 4 mg Q1H PRN Administration Severe Breakthrough Pain Nicotine 14 mg 03/30/19 18:00 04/03/19 15:28 Nicoderm Patch TD Not Given Q24HR AVEL Ondansetron HCl 4 mg 03/30/19 12:30 04/04/19 06:37 Zofran IVP 4 mg Q6H PRN Administration Nausea/Vomiting Pantoprazole Sodium 40 mg 03/31/19 09:00 04/04/19 08:37 Protonix IVP 40 mg DAILY AVEL Administration Promethazine HCl 12.5 mg 03/31/19 19:31 04/02/19 18:19 Phenergan IM 12.5 mg Q4H PRN Administration Nausea/Vomiting Senna/Docusate Sodium 2 tab 03/30/19 12:30 04/03/19 08:52 Senokot S PO 2 tab BID PRN Administration Constipation Sodium Chloride 10 ml 03/31/19 19:31 04/03/19 13:47 Flush - Normal Saline IVF 10 ml PRN PRN Administration Saline Flush Tramadol HCl 100 mg 04/01/19 06:38 04/04/19 10:10 Ultram PO 100 mg Q6H PRN Administration Severe Pain (7-10) - Exam General Appearance: awake alert Eye: PERRL, anicteric sclera ENT: no oropharyngeal lesions, moist mucosa Neck: supple, no JVD Heart: RRR, no murmur Respiratory: no wheezes, no rales Gastrointestinal: soft, non-tender, non-distended, normal bowel sounds Extremities: no cyanosis, no edema Neurological - other findings: left hemiparesis Hosp A/P (1) Brain mass Code(s): G93.89 - OTHER SPECIFIED DISORDERS OF BRAIN Status: Acute (2) Lung mass Code(s): R91.8 - OTHER NONSPECIFIC ABNORMAL FINDING OF LUNG FIELD Status: Acute (3) Tobacco abuse Code(s): Z72.0 - TOBACCO USE Status: Chronic (4) Left hemiparesis Code(s): G81.94 - HEMIPLEGIA, UNSPECIFIED AFFECTING LEFT NONDOMINANT SIDE Status: Acute - Plan s/p craniotomy with resection of 2 brain mets, await histopath had right cerebral mass x2 likely mets with resection, right lung cavitary lesion in upper lobe with mediastinal adenopathy chronic tobacco abuse on protonix, nebs hemostable PT/OT to mobilize as tolerated, ?rehab on [facility] if approved/swing bed has ambulated around 80ft with PT. CM working on safe dc planning.
[2019-04-04] MEDS: Senokot S 8.6-50 MG TAB PO PRN (15:58)
--- NOTE | 2019-04-04 16:23 | PRG ---
DATE OF SERVICE: 04/04/2019 SERVICE: Pulmonary Medicine. INTERVAL HISTORY: The patient is doing really well from respiratory standpoint. She is breathing comfortably on room air. Denies any current chest discomfort, nausea, or vomiting. She continues to have some persistent confusion, but some of the weakness she experienced is much improved. She is having a little bit of word-finding difficulties, particularly were names are concerned. PHYSICAL EXAMINATION: VITAL SIGNS: Afebrile, pulse 83, blood pressure 121/83, respirations 16, and saturation 95% on room air. GENERAL: The patient is awake and alert, in no apparent distress. LUNGS: Wonderful air entry with no prolonged expiratory phase or wheezing present. HEART: Normal rate, regular. ABDOMEN: Soft, nontender, and nondistended. Bowel sounds are positive. MUSCULOSKELETAL: No cyanosis or clubbing. There is no pitting in bilateral lower extremities. LABORATORY DATA: Blood cultures x2 are negative at 5 days. Brain biopsy demonstrates poorly differentiated high-grade metastatic carcinoma with necrosis Special stains at this point, could not hammer down the origin of this. ASSESSMENT: 1. Cavitary lung mass. 2. Mediastinal lymphadenopathy. 3. Brain metastases, status post craniotomy and excision. 4. Poorly differentiated carcinoma, widely metastatic. 5. Chronic obstructive pulmonary disease without current exacerbation. DISCUSSION AND PLAN: At this point, the patient has no further requirements for inpatient Pulmonary/Critical Care opinion. If additional pulmonary procedures are required in the future, I will certainly be available to Ms. Hickman. Please call if there are any questions. Job ID: [id number] MTDD
[2019-04-04] MEDS: Promethazine 25 MG TAB PO PRN (17:52)
[2019-04-04] MEDS: Nicotine 14 MG PATCH TD SCH (18:17)
[2019-04-04] MEDS: ALPRAZolam 0.5 MG TAB PO PRN (19:55)
[2019-04-05] MEDS: Acetaminophen 325 MG TAB PO PRN ×2 (04:43→13:12)
[2019-04-05] MEDS: traMADol HCl 50 MG TAB PO PRN ×3 (04:44→21:37)
[2019-04-05] MEDS: Ondansetron PF 4 MG/2 ML Vial IVP PRN ×2 (07:25→13:12)
[2019-04-05] MEDS: ALPRAZolam 0.5 MG TAB PO PRN ×2 (08:20→21:36)
--- NOTE | 2019-04-05 13:53 | PDOC.HOSPP ---
- Subjective Encounter Date: 04/05/19 Encounter Time: 11:15 Subjective: awake, no sob has issues with memory and left leg weakness - Objective Vital Signs & Weight: Vital Signs (12 hours) Temp Pulse Resp BP Pulse Ox 04/05/19 13:23 86 16 04/05/19 11:10 97.9 F 74 14 122/79 92 L 04/05/19 08:08 97.9 F 92 16 125/79 92 L 04/05/19 08:00 92 L 04/05/19 06:23 97 04/05/19 06:22 91 12 04/05/19 03:02 97.6 F 92 18 122/83 95 Weight Admit Weight 108 lb Weight 108 lb 14.534 oz Most Recent Monitor Data Heart Rate from ECG 84 NIBP 115/69 NIBP BP-Mean 84 Respiration from ECG 14 SpO2 96 I&O: 04/04/19 04/05/19 04/06/19 06:59 06:59 06:59 Intake Total 1297 1274 Balance 1297 1274 Result Diagrams: 04/01/19 09:06 04/01/19 09:06 Hospitalist ROS - Medication Medications: Active Medications Generic Name Dose Route Start Last Admin Trade Name Freq PRN Reason Stop Dose Admin Acetaminophen 650 mg 03/30/19 12:30 04/05/19 13:12 Tylenol PO 650 mg Q4H PRN Administration Headache/Fever/Mild Pain (1-3) Albuterol/Ipratropium 3 ml 03/30/19 19:00 04/05/19 13:23 Duoneb NEB 3 ml [id number] AVEL Administration Alprazolam 0.5 mg 03/30/19 22:43 04/05/19 08:20 Xanax PO 0.5 mg BID PRN Administration Anxiety Bisacodyl 10 mg 03/30/19 12:30 04/04/19 08:37 Dulcolax [place] 10 mg DAILYPRN PRN Administration Constipation Diphenhydramine HCl 50 mg 03/31/19 19:31 04/04/19 22:17 Benadryl PO 50 mg Q6H PRN Administration Itching & Insomnia Docusate Sodium 100 mg 03/31/19 19:31 04/04/19 06:37 Colace PO 100 mg BIDPRN PRN Administration Constipation Morphine Sulfate 2 mg 03/31/19 18:47 11/13/19 11:29 Morphine SLOW IVP 2 mg Q2H PRN Administration Pain Morphine Sulfate 4 mg 03/31/19 19:31 04/03/19 13:46 Morphine SLOW IVP 4 mg Q1H PRN Administration Severe Breakthrough Pain Nicotine 14 mg 03/30/19 18:00 04/04/19 18:17 Nicoderm Patch TD Not Given Q24HR AVEL Ondansetron HCl 4 mg 03/30/19 12:30 04/05/19 13:12 Zofran IVP 4 mg Q6H PRN Administration Nausea/Vomiting Pantoprazole Sodium 40 mg 04/05/19 09:00 04/05/19 08:21 Protonix PO 40 mg DAILY AVEL Administration Promethazine HCl 12.5 mg 03/31/19 19:31 04/04/19 17:52 Phenergan PO 12.5 mg Q4H PRN Administration Nausea/Vomiting Promethazine HCl 12.5 mg 03/31/19 19:31 04/02/19 18:19 Phenergan IM 12.5 mg Q4H PRN Administration Nausea/Vomiting Senna/Docusate Sodium 2 tab 03/30/19 12:30 04/04/19 15:58 Senokot S PO 2 tab BID PRN Administration Constipation Sodium Chloride 10 ml 03/31/19 19:31 04/04/19 13:11 Flush - Normal Saline IVF 10 ml PRN PRN Administration Saline Flush Tramadol HCl 100 mg 04/01/19 06:38 04/05/19 13:12 Ultram PO 100 mg Q6H PRN Administration Severe Pain (7-10) - Exam General Appearance: awake alert Eye: PERRL, anicteric sclera ENT: no oropharyngeal lesions, moist mucosa Neck: supple, no JVD Heart: RRR, no murmur Respiratory: no wheezes, no rales Gastrointestinal: soft, non-tender, non-distended, normal bowel sounds Extremities: no cyanosis, no edema Neurological - other findings: left hemiparesis Hosp A/P (1) Adenocarcinoma, lung Code(s): C34.90 - MALIGNANT NEOPLASM OF UNSP PART OF UNSP BRONCHUS OR LUNG Status: Acute Qualifiers: Laterality: right Qualified Code(s): C34.91 - Malignant neoplasm of unspecified part of right bronchus or lung (2) Tobacco abuse Code(s): Z72.0 - TOBACCO USE Status: Chronic (3) Left hemiparesis Code(s): G81.94 - HEMIPLEGIA, UNSPECIFIED AFFECTING LEFT NONDOMINANT SIDE Status: Acute (4) Brain metastases Code(s): C79.31 - SECONDARY MALIGNANT NEOPLASM OF BRAIN Status: Acute - Plan s/p craniotomy with resection of 2 brain mets, has adenocarcinoma lung with poor differentiation and high mitosis had right cerebral mets x2 with resection, right lung cavitary lesion in upper lobe with mediastinal adenopathy chronic tobacco abuse on protonix, nebs hemostable PT/OT to mobilize as tolerated, ?rehab on [facility] if approved/swing bed has ambulated around 80ft with PT. CM working on safe dc planning. D/w son Mr.Maxwell ku over phone and gave full updates
[2019-04-05] MEDS: diphenhydrAMINE 50 MG CAP PO PRN ×2 (17:20→22:34)
[2019-04-05] MEDS: Nicotine 14 MG PATCH TD SCH ×2 (17:21→17:26)
[2019-04-05] MEDS: Morphine 2 MG/ML SYRINGE SLOW IVP PRN (17:21)
[2019-04-05] MEDS: Dexamethasone 4 MG TAB PO SCH (17:21)
[2019-04-06] MEDS: traMADol HCl 50 MG TAB PO PRN ×3 (04:10→17:06)
[2019-04-06] MEDS: Morphine 2 MG/ML SYRINGE SLOW IVP PRN ×2 (04:32→13:38)
[2019-04-06] MEDS: diphenhydrAMINE 50 MG/ML VIAL IVP PRN ×2 (04:32→10:45)
[2019-04-06] MEDS: Dexamethasone 4 MG TAB PO SCH ×2 (08:35→17:05)
[2019-04-06] MEDS: Ondansetron PF 4 MG/2 ML Vial IVP PRN ×2 (08:35→16:55)
--- NOTE | 2019-04-06 09:02 | PRG ---
DATE OF SERVICE: 04/06/2019 Ms. Hickman is postoperative day #7 following tumor excision with Dr. Goodman. She is still somewhat encephalopathic and confused, though she is very conversant this morning. The topics are ranged and frequently her sentences do not make much sense and other times she is much more clear. We discussed her possible disposition home, and she has concerns about this, understandably, but as she continues to improve this likely appears to be the case. She is unfunded at this time and we are unable to get her placed in rehab so far, though additional attempts have been made. We will recheck tomorrow and discuss disposition at that time. Job ID: [id number]
--- NOTE | 2019-04-06 11:58 | PDOC.HOSPP ---
- Subjective Encounter Date: 04/06/19 Encounter Time: 11:00 Subjective: awake, talking, has memory issues and completing thought processes is moving all extremities ambulated around 200ft with PT - Objective Vital Signs & Weight: Vital Signs (12 hours) Temp Pulse Resp BP Pulse Ox 04/06/19 10:35 97.7 F 81 16 129/78 94 L 04/06/19 07:26 97.7 F 87 16 125/82 95 04/06/19 07:15 80 12 04/06/19 03:48 97.5 F L 80 18 94/61 93 L 04/06/19 00:31 95 04/06/19 00:28 16 95 Weight Admit Weight 108 lb Weight 108 lb 14.534 oz Most Recent Monitor Data Heart Rate from ECG 84 NIBP 115/69 NIBP BP-Mean 84 Respiration from ECG 14 SpO2 96 I&O: 04/05/19 04/06/19 04/07/19 06:59 06:59 06:59 Intake Total 1274 530 Balance 1274 530 Result Diagrams: 04/01/19 09:06 04/01/19 09:06 Hospitalist ROS - Medication Medications: Active Medications Generic Name Dose Route Start Last Admin Trade Name Freq PRN Reason Stop Dose Admin Acetaminophen 650 mg 03/30/19 12:30 04/05/19 13:12 Tylenol PO 650 mg Q4H PRN Administration Headache/Fever/Mild Pain (1-3) Alprazolam 0.5 mg 03/30/19 22:43 04/05/19 21:36 Xanax PO 0.5 mg BID PRN Administration Anxiety Bisacodyl 10 mg 03/30/19 12:30 04/04/19 08:37 Dulcolax [place] 10 mg DAILYPRN PRN Administration Constipation Dexamethasone 4 mg 04/05/19 17:00 04/06/19 08:35 Decadron PO 04/07/19 17:01 4 mg BID-WM AVEL Administration Diphenhydramine HCl 50 mg 03/31/19 19:31 04/06/19 10:45 Benadryl IVP 50 mg Q6H PRN Administration Itching & Insomnia Diphenhydramine HCl 50 mg 03/31/19 19:31 04/05/19 22:34 Benadryl PO 50 mg Q6H PRN Administration Itching & Insomnia Docusate Sodium 100 mg 03/31/19 19:31 04/04/19 06:37 Colace PO 100 mg BIDPRN PRN Administration Constipation Morphine Sulfate 2 mg 03/31/19 18:47 04/06/19 04:32 Morphine SLOW IVP 2 mg Q2H PRN Administration Pain Morphine Sulfate 4 mg 03/31/19 19:31 04/03/19 13:46 Morphine SLOW IVP 4 mg Q1H PRN Administration Severe Breakthrough Pain Nicotine 14 mg 03/30/19 18:00 04/05/19 17:26 Nicoderm Patch TD 14 mg Q24HR AVEL Administration Ondansetron HCl 4 mg 03/30/19 12:30 04/06/19 08:35 Zofran IVP 4 mg Q6H PRN Administration Nausea/Vomiting Pantoprazole Sodium 40 mg 04/05/19 09:00 04/06/19 08:35 Protonix PO 40 mg DAILY AVEL Administration Promethazine HCl 12.5 mg 03/31/19 19:31 04/04/19 17:52 Phenergan PO 12.5 mg Q4H PRN Administration Nausea/Vomiting Promethazine HCl 12.5 mg 03/31/19 19:31 04/02/19 18:19 Phenergan IM 12.5 mg Q4H PRN Administration Nausea/Vomiting Senna/Docusate Sodium 2 tab 03/30/19 12:30 04/04/19 15:58 Senokot S PO 2 tab BID PRN Administration Constipation Sodium Chloride 10 ml 03/31/19 19:31 04/06/19 08:38 Flush - Normal Saline IVF 10 ml PRN PRN Administration Saline Flush Tramadol HCl 100 mg 04/01/19 06:38 04/06/19 10:44 Ultram PO 100 mg Q6H PRN Administration Severe Pain (7-10) - Exam General Appearance: awake alert Eye: PERRL, anicteric sclera ENT: no oropharyngeal lesions, moist mucosa Neck: supple, no JVD Heart: RRR, no murmur Respiratory: no wheezes, no rales Gastrointestinal: soft, non-tender, non-distended, normal bowel sounds Extremities: no cyanosis, no edema Neurological - other findings: mild left hemiparesis Hosp A/P (1) Adenocarcinoma, lung Code(s): C34.90 - MALIGNANT NEOPLASM OF UNSP PART OF UNSP BRONCHUS OR LUNG Status: Acute Qualifiers: Laterality: right Qualified Code(s): C34.91 - Malignant neoplasm of unspecified part of right bronchus or lung (2) Tobacco abuse Code(s): Z72.0 - TOBACCO USE Status: Chronic (3) Left hemiparesis Code(s): G81.94 - HEMIPLEGIA, UNSPECIFIED AFFECTING LEFT NONDOMINANT SIDE Status: Acute (4) Brain metastases Code(s): C79.31 - SECONDARY MALIGNANT NEOPLASM OF BRAIN Status: Acute - Plan s/p craniotomy with resection of 2 brain mets, has adenocarcinoma lung with poor differentiation and high mitosis had right cerebral mets x2 with resection, right lung cavitary lesion in upper lobe with mediastinal adenopathy on protonix, nebs hemostable PT/OT to mobilize as tolerated, ?rehab on [facility] if approved/swing bed has ambulated around 200ft with PT. CM working on safe dc planning. D/w son Mr.Maxwell ku over phone and gave full updates on 04/05/2019 on tapering decadron
[2019-04-06] MEDS: Nicotine 14 MG PATCH TD SCH ×2 (17:06→19:26)
[2019-04-06] MEDS: ALPRAZolam 0.5 MG TAB PO PRN (17:06)
[2019-04-06] MEDS: Promethazine 25 MG TAB PO PRN (19:23)
[2019-04-06] MEDS: Morphine 4 MG/ML VIAL SLOW IVP PRN ×2 (19:31→21:25)
[2019-04-06] MEDS: Docusate 100 MG CAP PO PRN (20:57)
[2019-04-06] MEDS: diphenhydrAMINE 50 MG CAP PO PRN (20:57)
[2019-04-07] MEDS ORDERED: Zolpidem Tartrate 5 MG TAB PO SCH ×2 (00:30)
[2019-04-07] MEDS: Morphine 4 MG/ML VIAL SLOW IVP PRN (00:42)
[2019-04-07 04:10] LABS: #Eosinphils 0.1 thou/uL (0.0-0.7); #Lymphocytes 1.8 thou/uL (1.20-3.40); #Monocytes 1.2 thou/uL (0.11-0.59); #Neutrophils 11.3 thou/uL (1.40-6.50); %Basophils 0.2 % (0.0-1.0); %Eosinophils 0.4 % (0.0-10.0); %Lymphocytes 12.6 % (21.0-51.0); %Monocytes 8.1 % (0.0-10.0); %Neutrophils 78.7 % (42.0-75.0); Hemoglobin 12.3 g/dL (12.0-16.0); Mean Corpuscular HGB CONC 33.2 g/dL (32.0-36.0); Mean Corpuscular Hemoglobin 32.3 pg (27.0-31.0); Mean Corpuscular Volume 97.2 fL (78.0-98.0); Platelet Count 390 thou/uL (130-400); RBC Distribution Width 11.4 % (11.5-14.5); Red Blood Cell (RBC) Count 3.82 mill/uL (4.20-5.40); White Blood Cell (WBC) Count 14.4 thou/uL (4.8-10.8)
[2019-04-07 04:31] LABS: Anion Gap 11 mmol/L (10-20); BUN (Urea Nitrogen) 18 mg/dL (7.0-18.7); Calc. Creatinine Clearance 81 mL/min (70-130); Calcium 8.7 mg/dL (7.8-10.44); Carbon Dioxide 28 mmol/L (22-29); Chloride 98 mmol/L (98-107); Estimated GFR-MDRD Greater than 90; Glucose 118 mg/dL (70-105); Sodium 133 mmol/L (136-145)
[2019-04-07] MEDS: traMADol HCl 50 MG TAB PO PRN ×4 (05:02→23:10)
[2019-04-07] MEDS: Ondansetron PF 4 MG/2 ML Vial IVP PRN ×3 (05:02→17:02)
[2019-04-07] MEDS: Promethazine 25 MG TAB PO PRN ×2 (07:58→14:44)
[2019-04-07] MEDS: Dexamethasone 4 MG TAB PO SCH ×2 (09:12→17:02)
[2019-04-07] MEDS: Morphine 2 MG/ML SYRINGE SLOW IVP PRN ×3 (09:31→21:24)
--- NOTE | 2019-04-07 09:42 | PRG ---
DATE OF SERVICE: 04/07/2019 Ms. Hickman is mobilizing in her room at the time of my visit this morning. She continues to have a fluctuating course with respect to her level of mental clarity. She reports no discomfort at this point in time. She feels that she is not ready to go home at this point in time, and the family is unclear as to whether or not they wanted to go home versus rehab setting. They will discuss further, and we will re-evaluate later. Job ID: [id number]
[2019-04-07] MEDS: diphenhydrAMINE 50 MG/ML VIAL IVP PRN ×3 (11:19→23:11)
--- NOTE | 2019-04-07 13:24 | PDOC.HOSPP ---
- Subjective Encounter Date: 04/07/19 Encounter Time: 13:23 Subjective: Patient seen and examined. No new complaints. No overnight events - Objective Vital Signs & Weight: Vital Signs (12 hours) Temp Pulse Resp BP BP BP Pulse Ox 04/07/19 12:20 97.9 F 92 18 121/73 94 L 04/07/19 07:49 97.7 F 85 18 114/72 95 04/07/19 04:00 98.1 F 74 16 100/64 95 Weight Admit Weight 108 lb Weight 108 lb 14.534 oz Most Recent Monitor Data Heart Rate from ECG 84 NIBP 115/69 NIBP BP-Mean 84 Respiration from ECG 14 SpO2 96 I&O: 04/06/19 04/07/19 04/08/19 06:59 06:59 06:59 Intake Total 980 Balance 980 Result Diagrams: 04/07/19 03:47 04/07/19 03:47 Hospitalist ROS - Medication Medications: Active Medications Generic Name Dose Route Start Last Admin Trade Name Freq PRN Reason Stop Dose Admin Acetaminophen 650 mg 03/30/19 12:30 04/05/19 13:12 Tylenol PO 650 mg Q4H PRN Administration Headache/Fever/Mild Pain (1-3) Alprazolam 0.5 mg 03/30/19 22:43 04/06/19 17:06 Xanax PO 0.5 mg BID PRN Administration Anxiety Bisacodyl 10 mg 03/30/19 12:30 04/04/19 08:37 Dulcolax [place] 10 mg DAILYPRN PRN Administration Constipation Dexamethasone 4 mg 04/05/19 17:00 04/07/19 09:12 Decadron PO 04/07/19 17:01 4 mg BID-WM AVEL Administration Diphenhydramine HCl 50 mg 03/31/19 19:31 04/07/19 11:19 Benadryl IVP 50 mg Q6H PRN Administration Itching & Insomnia Diphenhydramine HCl 50 mg 03/31/19 19:31 04/06/19 20:57 Benadryl PO 50 mg Q6H PRN Administration Itching & Insomnia Docusate Sodium 100 mg 03/31/19 19:31 04/06/19 20:57 Colace PO 100 mg BIDPRN PRN Administration Constipation Morphine Sulfate 2 mg 03/31/19 18:47 04/07/19 09:31 Morphine SLOW IVP 2 mg Q2H PRN Administration Pain Morphine Sulfate 4 mg 03/31/19 19:31 04/07/19 00:42 Morphine SLOW IVP 4 mg Q1H PRN Administration Severe Breakthrough Pain Nicotine 14 mg 03/30/19 18:00 04/06/19 19:26 Nicoderm Patch TD Not Given Q24HR AVEL Ondansetron HCl 4 mg 03/30/19 12:30 04/07/19 11:20 Zofran IVP 4 mg Q6H PRN Administration Nausea/Vomiting Pantoprazole Sodium 40 mg 04/05/19 09:00 04/07/19 09:12 Protonix PO 40 mg DAILY AVEL Administration Promethazine HCl 12.5 mg 03/31/19 19:31 04/07/19 07:58 Phenergan PO 12.5 mg Q4H PRN Administration Nausea/Vomiting Promethazine HCl 12.5 mg 03/31/19 19:31 04/02/19 18:19 Phenergan IM 12.5 mg Q4H PRN Administration Nausea/Vomiting Senna/Docusate Sodium 2 tab 03/30/19 12:30 04/04/19 15:58 Senokot S PO 2 tab BID PRN Administration Constipation Sodium Chloride 10 ml 03/31/19 19:31 04/07/19 11:21 Flush - Normal Saline IVF 10 ml PRN PRN Administration Saline Flush Tramadol HCl 100 mg 04/01/19 06:38 04/07/19 11:20 Ultram PO 100 mg Q6H PRN Administration Severe Pain (7-10) - Exam General Appearance: NAD Eye: anicteric sclera ENT: normocephalic atraumatic Neck: supple Heart: RRR Respiratory: CTAB Gastrointestinal: soft Extremities: no edema Skin: no rashes Neurological: no weakness Psychiatric: normal affect Hosp A/P (1) Adenocarcinoma, lung Code(s): C34.90 - MALIGNANT NEOPLASM OF UNSP PART OF UNSP BRONCHUS OR LUNG Status: Acute Qualifiers: Laterality: right Qualified Code(s): C34.91 - Malignant neoplasm of unspecified part of right bronchus or lung (2) Brain metastases Code(s): C79.31 - SECONDARY MALIGNANT NEOPLASM OF BRAIN Status: Acute (3) Left hemiparesis Code(s): G81.94 - HEMIPLEGIA, UNSPECIFIED AFFECTING LEFT NONDOMINANT SIDE Status: Acute (4) Tobacco abuse Code(s): Z72.0 - TOBACCO USE Status: Chronic - Plan old records reviewed/req, plan discussed w/ family, PT/OT, director social service, GI proph continue decadron PT/OT DC planning
[2019-04-07] MEDS: Nicotine 14 MG PATCH TD SCH ×3 (17:46→18:46)
[2019-04-07] MEDS: ALPRAZolam 0.5 MG TAB PO PRN (20:27)
[2019-04-08] MEDS: Ondansetron PF 4 MG/2 ML Vial IVP PRN ×2 (03:14→15:17)
[2019-04-08] MEDS ORDERED: Zolpidem Tartrate 5 MG TAB PO PRN (03:28)
[2019-04-08] MEDS ORDERED: Zolpidem Tartrate 5 MG TAB PO SCH (03:30)
[2019-04-08] MEDS: Morphine 2 MG/ML SYRINGE SLOW IVP PRN ×3 (04:57→20:12)
[2019-04-08] MEDS: traMADol HCl 50 MG TAB PO PRN ×3 (06:28→20:13)
[2019-04-08] MEDS: diphenhydrAMINE 50 MG/ML VIAL IVP PRN (06:30)
--- NOTE | 2019-04-08 06:57 | PRG ---
DATE OF SERVICE: 04/08/2019 Ms. Hickman is a week and 1 day out from a craniotomy for resection of brain metastases. She is solid, steadily improving. She has no complaints this morning. Arrangements have been made for an oncology appointment next Monday. I am unaware of the next Radiation Oncology appointment. Vitals have been Stable overnight. the neurological Examination is improving with a more constant train of thought , good conversational skills and some left-sided weakness and neglect that are both improving significantly. It is highly important that Ms. Hickman understand the gravity of her situation and make plans for realistic approach to chemoradiotherapy. Living alone, remote from family will adversely affect her access to care. Her poor insurance coverage will also make it a significant obstacle to get the care she needs. So far, I have not heard a realistic plan for her home situation and I do not know how she is going to get from home to oncology appointments, to her chemotherapy administration days, and to her radiation. Her son is here from [place] and is going to help make these arrangements happen. Job ID: [id number] MTDD
[2019-04-08] MEDS: Promethazine 25 MG TAB PO PRN ×2 (07:52→18:19)
[2019-04-08] MEDS: Dexamethasone 4 MG TAB PO SCH (08:54)
[2019-04-08] MEDS: ALPRAZolam 0.5 MG TAB PO PRN ×2 (11:50→23:51)
--- NOTE | 2019-04-08 12:34 | PDOC.HOSPP ---
- Subjective Encounter Date: 04/08/19 Encounter Time: 09:10 Subjective: no new complaints, son at bedside this morning - Objective Vital Signs & Weight: Vital Signs (12 hours) Temp Pulse Resp BP Pulse Ox 04/08/19 07:45 96 04/08/19 07:30 97.7 F 86 14 113/79 98 04/08/19 03:07 97.5 F L 76 16 120/78 96 Weight Admit Weight 108 lb Weight 108 lb 14.534 oz Most Recent Monitor Data Heart Rate from ECG 84 NIBP 115/69 NIBP BP-Mean 84 Respiration from ECG 14 SpO2 96 I&O: 04/07/19 04/08/19 04/09/19 06:59 06:59 06:59 Intake Total 980 2140 Balance 980 2140 Result Diagrams: 04/07/19 03:47 04/07/19 03:47 Hospitalist ROS - Medication Medications: Active Medications Generic Name Dose Route Start Last Admin Trade Name Freq PRN Reason Stop Dose Admin Acetaminophen 650 mg 03/30/19 12:30 04/05/19 13:12 Tylenol PO 650 mg Q4H PRN Administration Headache/Fever/Mild Pain (1-3) Alprazolam 0.5 mg 03/30/19 22:43 04/08/19 11:50 Xanax PO 0.5 mg BID PRN Administration Anxiety Bisacodyl 10 mg 03/30/19 12:30 04/04/19 08:[address] 10 mg DAILYPRN PRN Administration Constipation Dexamethasone 4 mg 04/08/19 08:00 04/08/19 08:54 Decadron PO 04/09/19 08:01 4 mg QAM-WM AVEL Administration Diphenhydramine HCl 50 mg 03/31/19 19:31 04/08/19 06:30 Benadryl IVP 50 mg Q6H PRN Administration Itching & Insomnia Diphenhydramine HCl 50 mg 03/31/19 19:31 04/06/19 20:57 Benadryl PO 50 mg Q6H PRN Administration Itching & Insomnia Docusate Sodium 100 mg 03/31/19 19:31 04/06/19 20:57 Colace PO 100 mg BIDPRN PRN Administration Constipation Morphine Sulfate 2 mg 03/31/19 18:47 04/08/19 09:34 Morphine SLOW IVP 2 mg Q2H PRN Administration Pain Morphine Sulfate 4 mg 03/31/19 19:31 04/07/19 00:42 Morphine SLOW IVP 4 mg Q1H PRN Administration Severe Breakthrough Pain Nicotine 14 mg 03/30/19 18:00 04/07/19 18:46 Nicoderm Patch TD 14 mg Q24HR AVEL Administration Ondansetron HCl 4 mg 03/30/19 12:30 04/08/19 03:14 Zofran IVP 4 mg Q6H PRN Administration Nausea/Vomiting Pantoprazole Sodium 40 mg 04/05/19 09:00 04/08/19 08:54 Protonix PO 40 mg DAILY AVEL Administration Promethazine HCl 12.5 mg 03/31/19 19:31 04/08/19 07:52 Phenergan PO 12.5 mg Q4H PRN Administration Nausea/Vomiting Promethazine HCl 12.5 mg 03/31/19 19:31 04/02/19 18:19 Phenergan IM 12.5 mg Q4H PRN Administration Nausea/Vomiting Senna/Docusate Sodium 2 tab 03/30/19 12:30 04/04/19 15:58 Senokot S PO 2 tab BID PRN Administration Constipation Sodium Chloride 10 ml 03/31/19 19:31 04/08/19 03:15 Flush - Normal Saline IVF 10 ml PRN PRN Administration Saline Flush Tramadol HCl 100 mg 04/01/19 06:38 04/08/19 06:28 Ultram PO 100 mg Q6H PRN Administration Severe Pain (7-10) - Exam General Appearance: awake alert Eye: PERRL, anicteric sclera ENT: no oropharyngeal lesions, moist mucosa Neck: supple, no JVD Heart: RRR, no murmur Respiratory: no wheezes, no rales Gastrointestinal: soft, non-tender, non-distended, normal bowel sounds Extremities: no cyanosis, no edema Neurological - other findings: left hemiparesis 4/5 Hosp A/P (1) Adenocarcinoma, lung Code(s): C34.90 - MALIGNANT NEOPLASM OF UNSP PART OF UNSP BRONCHUS OR LUNG Status: Acute Qualifiers: Laterality: right Qualified Code(s): C34.91 - Malignant neoplasm of unspecified part of right bronchus or lung (2) Tobacco abuse Code(s): Z72.0 - TOBACCO USE Status: Chronic (3) Left hemiparesis Code(s): G81.94 - HEMIPLEGIA, UNSPECIFIED AFFECTING LEFT NONDOMINANT SIDE Status: Acute (4) Brain metastases Code(s): C79.31 - SECONDARY MALIGNANT NEOPLASM OF BRAIN Status: Acute - Plan s/p craniotomy with resection of 2 brain mets, has adenocarcinoma lung with poor differentiation and high mitosis had right cerebral mets x2 with resection, right lung cavitary lesion in upper lobe with mediastinal adenopathy on protonix, nebs hemostable PT/OT has mobilized her to around 200ft CM working on safe dc planning. D/w son Mr.Maxwell ku and patient at bedside May dc anytime per CM/family advice.
[2019-04-08] MEDS: diphenhydrAMINE 50 MG CAP PO PRN ×2 (13:30→22:23)
[2019-04-08] MEDS: Acetaminophen 325 MG TAB PO PRN (16:55)
[2019-04-08] MEDS: Nicotine 14 MG PATCH TD SCH (16:56)
[2019-04-09] MEDS ORDERED: Lorazepam 2 MG/ML VIAL SLOW IVP PRN (00:57)
[2019-04-09 03:21] VITALS: BP 102/57; TEMP 97.5
[2019-04-09] MEDS: traMADol HCl 50 MG TAB PO PRN (06:19)
--- NOTE | 2019-04-09 07:00 | PRG ---
DATE OF SERVICE: 04/09/2019 I saw Ms. Hickman in her hospital room this morning. She is a week and two days out from craniotomy for metastatic lung cancer. She seems to be improving neurologically. If she is safe for activities of daily living, and she has a way to make her followup appointments both for chemotherapy and radiation therapy, then she can be discharged. Job ID: [id number]
[2019-04-09] MEDS: Dexamethasone 4 MG TAB PO SCH (08:52)
[2019-04-09] MEDS: Promethazine 25 MG TAB PO PRN (14:20)
[2019-04-09] MEDS: ALPRAZolam 0.5 MG TAB PO PRN (14:21)
--- NOTE | 2019-04-09 15:16 | DIS ---
DATE OF ADMISSION: 03/30/2019 DATE OF DISCHARGE: 04/09/2019 DISCHARGE DISPOSITION: Home. 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 PROCEDURES DONE DURING HOSPITALIZATION: MRI brain showed rim-enhancing right cerebral mass with extensive vasogenic edema and increasing shift of the midline structures suggestive of possible metastatic disease. CT chest, abdomen, and pelvis with IV contrast done showed large poorly circumscribed cavitary right upper lobe lung mass suspicious for neoplasm, extensive mediastinal adenopathy, bilateral pulmonary metastasis. The patient had right frontoparietal craniotomy with resection of right frontal lesion and right parietal lesion by Dr. Goodman on 03/31/2019. Histopathology of the brain metastasis revealed poorly differentiated high-grade metastatic carcinoma with necrosis and brisk mitosis. The patient had Napsin positive and GATA3-positive. Blood cultures x2, no growth. Hemoglobin and hematocrit 12 and 37, platelet count 390. BUN 18, creatinine 0.6, albumin 3.4. DISCHARGE MEDICATIONS: 1. Xanax 0.5 mg p.o. twice daily p.r.n. 2. Trazodone 100 mg p.o. at bedtime. 3. Albuterol inhaler q.6 hours p.r.n. 4. Protonix 40 mg p.o. daily. 5. Ultram 50 mg p.o. q.6 hourly p.r.n. ALLERGIES: ALLERGIC TO CODEINE AND H2 BLOCKERS. INPATIENT CONSULT: 1. Dr. Goodman for Neurosurgery. 2. Dr. Haney for pulmonology. 3. Ms. Yokasta Krishnamurthy for Oncology. DISCHARGE PLAN: The patient has a followup appointment setup to see Dr. Ravin Bowman, oncologist, on 04/15/2019, at 3:00 p.m., Dr. Leif aWy on 04/12/2019 at 8:00 a.m., radiation oncologist. She needs to see Dr. Goodman as advised and primary care physician in 1 week BRIEF COURSE DURING HOSPITALIZATION: The patient initially got admitted on the with complaints of intractable nausea and vomiting, and headaches from two weeks. Also, the patient had been unsteady on her feet and had left-sided weakness. She also had some visual disturbances and was feeling fuzzy. Her initial CT scan revealed possible brain masses. MRI with contrast done confirmed two cerebral masses. She has had CT chest, abdomen, and pelvis done with contrast, which showed right upper lobe cavitary lung lesion suspicious for cancer. The patient had severe cerebral edema with midline shift. She was on IV Decadron initially. She has had consultation with Dr. Goodman and was taken to operating room on the with resection done of the right frontal and right parietal lesion. Histopathology from these masses has revealed poorly differentiated high-grade metastatic carcinoma with necrosis and brisk mitosis, suspicious for likely pulmonary adenocarcinoma with right upper lobe cavitary lung lesion. She has appointment setup to see oncologist, Dr. Ravin Bowman on the , Dr. Leif Way for radiation oncology on the of this month. She has been strongly counseled to follow up for the appointment to see the plan of care for her cancer. The patient did not have any health insurance and did not have any financial means to go to inpatient rehab. Attempts were made to place her in swing bed in [place], for which she did not qualify due to a history of smoking per Case Management. Prior to discharge, she is ambulating 200 feet and is eating well. She is also mobilizing herself for her ADL. The patient has short-term memory issues. She has 3 children out of which two are in the correction facility and a son lives in [place]. He is currently unable to take her with him. Case Management consultation was requested for a safe discharge plan. Per Case Management, the patient will be going to stay with her friend in [facility], who will be driving her up for followup appointments with Oncology and radiation oncologist. The patient appears to have fairly aggressive adenocarcinoma of the lung with a very poor differentiation and high degree of mitosis. She will require radiation therapy for the brain. The patient also met [facility] pharmacy services representative for help with walker and other needs, but they refused to give financial information and stated they would purchase the walker themselves. Per Case Management, the patient has a safe discharge plan with a friend and will be shortly discharged home. Please note, I have seen and examined the patient on the day of discharge. Job ID: [id number] [id number]
== END 2019-04-09 16:00 | disposition home or self-care (01) | DRG 25 ==
LOC: ERS 10:52 → CCU 15:41 → SURG A 04-01 10:57
PROVIDERS: ADMIT Internal Medicine; ATTEND Internal Medicine
PROC: 00B00ZZ Excision of Brain, Open Approach (ICD-10-PCS; principal; 2019-03-31)
PROC: DW21DZZ Stereotactic Other Photon Radiosurgery of Head and Neck (ICD-10-PCS; 2019-03-31)
DX: C79.31 Secondary malignant neoplasm of brain (principal); G93.6 Cerebral edema; C34.90 Malignant neoplasm of unspecified part of unspecified bronchus or lung; G81.94 Hemiplegia, unspecified affecting left nondominant side; Z90.49 Acquired absence of other specified parts of digestive tract; Z90.89 Acquired absence of other organs; F17.210 Nicotine dependence, cigarettes, uncomplicated; Z88.5 Allergy status to narcotic agent; R59.1 Generalized enlarged lymph nodes
CPT/HCPCS: 36415; 70553; 71260; 74177; 80048; 80053; 80076; 85025; 86480; 87040; 88307; 88331; 88341; 88342; 94640; 96361; 96365; C1713; C9113; J0131; J0690; J1100; J1200; J1885; J2001; J2060; J2270; J2405; J2550; J2704; J3010; J3490; J7620; J7799; J8540; Q0163; Q0169; Q9967